=== PATIENT | male | born 1985 | race Caucasian/White ===

== ENCOUNTER 2017-10-12 17:29 | Inpatient (IN) | payer OTHER ==
[2017-10-12 18:03] VITALS: BMI 23.5
--- NOTE | 2017-10-12 20:16 | HP ---
COWS - Scale Resting Pulse: 2= SC 101-120 Sweatin= Chills/Flushing Restless Observation: 1= Difficult to Sit Still Pupil Size: 1= Pupils >than Normal Bone or Joint Aches: 1= Mild Discomfort Runny Nose/ Eye Tearin= None GI Upset > 30mins: 0= None Tremor Observation: 1= Tremor Purcell, Not Seen Yawning Observation: 2= >3x During Session Anxiety or Irritability: 2=Irritable/Anxious Goose Flesh Skin: 0=Smooth Skin COWS Score: 11 CIWA Score - CIWA Score Nausea/Vomitin-No Nausea/No Vomiting Muscle Tremors: 2 Anxiety: 3 Agitation: 3 Paroxysmal Sweats: 2 Orientation: 0-Oriented Tacttile Disturbances: 0-None Auditory Disturbances: 0-None Visual Disturbances: 0-None Headache: 0-None Present CIWA-Ar Total Score: 10 Admission ROS S - HPI Chief Complaint: " I am here to detox, I feel like I'm running out of time" Allergies/Adverse Reactions: Allergies Allergy/AdvReac Type Severity Reaction Status Date / Time No Known Drug Allergies Allergy Verified 10/12/17 19:13 fish derived AdvReac Verified 10/12/17 19:13 cheese, fish AdvReac Uncoded 10/12/17 19:13 History of Present Illness: 32 yo male with hx of alcohol IV heroin, alcohol, nicotine, and THC dependence is here seeking detox. PMHX: ulcerative Colitis, denies psychiatric hx. Denies suicidal / homicidal ideation. Last detox [facility] 2013. Reports no significant period sobriety. Exam Limitations: No Limitations - Ebola screening Have you traveled outside of the country in the last 21 days: Yes Have you been sick,other than usual withdrawal symptoms: No - Review of Systems Constitutional: Chills, Diaphoresis, Changes in sleep, Unintentional Wgt. Loss EENT: reports: No Symptoms Reported Respiratory: reports: No Symptoms reported Cardiac: reports: No Symptoms Reported GI: reports: Poor Fluid Intake : reports: No Symptoms Reported Musculoskeletal: reports: Back Pain (low back pain), Joint Pain Integumentary: reports: No Symptoms Reported Neuro: reports: No Symptoms reported Endocrine: reports: Increased Thirst Hematology: reports: Anemia (no hx blood transfusion) Psychiatric: reports: Orientated x3, Anxious Other Systems: Reviewed and Negative Patient History - Patient Medical History Hx Anemia: Yes (reports last month treated a month ago ) Hx Asthma: No Hx Chronic Obstructive Pulmonary Disease (COPD): No Hx Cancer: No Hx Cardiac Disorders: No Hx Congestive Heart Failure: No Hx Hypertension: No Hx Hypercholesterolemia: No Hx Pacemaker: No HX Cerebrovascular Accident: No Hx Seizures: No Hx Dementia: No Hx Diabetes: No Hx Gastrointestinal Disorders: Yes (Ulcerative Collitis ) Hx Liver Disease: No Hx Genitourinary Disorders: No Hx Sexually Transmitted Disorders: No Hx Renal Disease (ESRD): No Hx Thyroid Disease: No Hx Human Immunodeficiency Virus (HIV): No (doesn't recall last time tested ) Hx Hepatitis C: No Hx Depression: No Hx Suicide Attempt: No Hx Bipolar Disorder: No Hx Schizophrenia: No - Patient Surgical History Past Surgical History: Yes Hx Neurologic Surgery: No Hx Cataract Extraction: No Hx Cardiac Surgery: No Hx Lung Surgery: No Hx Breast Surgery: No Hx Breast Biopsy: No Hx Abdominal Surgery: No Hx Appendectomy: No Hx Cholecystectomy: No Hx Genitourinary Surgery: No Hx Section: No Hx Orthopedic Surgery: Yes (L wrist sx in 2000 bone graft from L hip.) Anesthesia Reaction: No - PPD History Previous Implant?: Yes Documented Results: Negative w/proof Date: 03/12/13 Results: 0mm PPD to be Administered?: Yes - Reproductive History Patient is a Female of Child Bearing Age (11 -55 yrs old): No - Smoking Cessation Smoking history: Current every day smoker Have you smoked in the past 12 months: Yes Aproximately how many cigarettes per day: 10 Cigars Per Day: 0 Hx Chewing Tobacco Use: No Initiated information on smoking cessation: Yes 'Breaking Loose' booklet given: 10/12/17 - Substance & Tx. History Hx Alcohol Use: Yes Hx Substance Use: Yes Substance Use Type: Alcohol, Heroin, Marijuana Hx Substance Use Treatment: Yes ([facility] 2013) - Substances Abused Alcohol Route: Oral Frequency: Daily Amount used: 1 BOTTLE OF VODKA Age of first use: 18 Date of Last Use: 10/09/17 Heroin Route: Injection Frequency: Daily Amount used: 10-15BAGS Age of first use: 34 Date of Last Use: 10/11/17 Family Disease History - Family Disease History Family History: Unable to Obtain Admission Physical Exam BHS - Vital Signs Vital Signs: Vital Signs - 24 hr 10/12/17 18:00 Temperature 97.0 F L Pulse Rate 110 H Respiratory 18 Rate Blood Pressure 119/69 - Physical General Appearance: Yes: Appropriately Dressed, Thin, Anxious HEENTM: Yes: EOMI, Hearing grossly Normal, Normal ENT Inspection, Normocephalic , Normal Voice, FARAZ, Pharynx Normal, Tm's normal Respiratory: Yes: Chest Non-Tender, Lungs Clear, Normal Breath Sounds, No Respiratory Distress, No Accessory Muscle Use Neck: Yes: No masses,lesions,Nodules, Trachea in good position Breast: Yes: Breast Exam Deferred Cardiology: Yes: Regular Rhythm, Regular Rate Abdominal: Yes: Normal Bowel Sounds, Non Tender, Flat, Soft Genitourinary: Yes: Within Normal Limits Back: Yes: Normal Inspection Musculoskeletal: Yes: full range of Motion, Gait Steady, Pelvis Stable, Back pain Extremities: Yes: Normal Capillary Refill, Normal Inspection, Normal Range of Motion, Non-Tender Neurological: Yes: womens volleyball coach II-XII NML intact, Fully Oriented, Motor Strength 5/5, Depressed Affect Integumentary: Yes: Normal Color, Moist, Track Ramos (bilateral hands in different heating stages, no signs of infection. Abrasion on the bridge of nose , no infection.) Lymphatic: Yes: Within Normal Limits - Diagnostic (1) Alcohol dependence with withdrawal Current Visit: Yes Status: Acute Qualifiers: Complication of substance-induced condition: uncomplicated Qualified Code(s ): F10.230 - Alcohol dependence with withdrawal, uncomplicated (2) Opioid dependence with withdrawal Current Visit: Yes Status: Acute (3) Marijuana dependence Current Visit: Yes Status: Acute (4) Ulcerative colitis Current Visit: Yes Status: Chronic Qualifiers: Ulcerative colitis location: unspecified ulcerative colitis location (5) Anemia Current Visit: Yes Status: Acute Qualifiers: Anemia type: iron deficiency (6) Nicotine dependence Current Visit: Yes Status: Active (7) IVDU (intravenous drug user) Current Visit: Yes Status: Acute Cleared for Admission S - Detox or Rehab [facility] Level of Care: Medically Supervised Detox Regimen/Protocol: Methadone/Librium S Breath Alcohol Content Breath Alcohol Content: 0 Urine Drug Screen - Results Drug Screen Negative: No Urine Drug Screen Results: THC-Marijuana, OPI-Opiates, OXY-Oxycodone
[2017-10-12] MEDS ORDERED: MENTHOL/PHENOL 1 EACH UD MM PRN (20:23)
[2017-10-12] MEDS ORDERED: MAGNESIUM CITRATE 300 ML BOTTLE PO PRN (20:23)
[2017-10-12] MEDS ORDERED: LOPERAMIDE HCL 2 MG CAPSULE PO PRN (20:23)
[2017-10-12] MEDS ORDERED: MAGNESIUM HYDROX 2400MG/30ML ORAL SUSPENSION 30 ML CUP PO PRN (20:23)
[2017-10-12] MEDS ORDERED: guaiFENesin/D-METHORPHAN HB 10 ML UNIT-DOSE CUPS PO PRN (20:23)
[2017-10-12] MEDS ORDERED: chlordiazePOXIDE HCL 25 MG CAPSULE PO PRN (20:23)
[2017-10-12] MEDS ORDERED: P-EPHED 60MG/TRIPROLIDI 2.5MG TABLET PO PRN (20:23)
[2017-10-12] MEDS ORDERED: ACETAMINOPHEN 325 MG TABLET (FP) PO PRN (20:23)
[2017-10-12] MEDS ORDERED: MAG HYDROX/AL HYDROX/SIMETH 30 ML UNIT-DOSE CUP PO PRN (20:23)
[2017-10-12] MEDS ORDERED: NICOTINE POLACRILEX 2 MG GUM BUC PRN (20:29)
[2017-10-12] MEDS ORDERED: hydrOXYzine PAMOATE 50 MG CAPSULE (FP) PO PRN (20:38)
[2017-10-12] MEDS ORDERED: IBUPROFEN 400 MG TABLET (FP) PO PRN (20:39)
[2017-10-12] MEDS ORDERED: METHADONE HCL 10 MG TABLET (FOR DETOX USE ONLY) PO ONE ×2 (20:45→23:00)
[2017-10-12] MEDS ORDERED: chlordiazePOXIDE HCL 25 MG CAPSULE PO ONE (20:45)
[2017-10-12] MEDS ORDERED: MELATONIN 5 MG TABLETS PO PRN (22:00)
[2017-10-12] MEDS: THIAMINE HCL 100 MG TABLET (FP) PO SCH (22:15)
[2017-10-12] MEDS: chlordiazePOXIDE HCL 25 MG CAPSULE PO SCH (22:48)
[2017-10-13] MEDS: chlordiazePOXIDE HCL 25 MG CAPSULE PO SCH ×4 (06:08→22:36)
[2017-10-13] MEDS ORDERED: METHADONE HCL 10 MG TABLET (FOR DETOX USE ONLY) PO SCH (10:00)
[2017-10-13 10:40] LABS: URINE APPEARANCE CLOUDY; URINE BILIRUBIN NEGATIVE (<2.0 mg/dL); URINE GLUCOSE (UA) NEGATIVE (NEGATIVE); URINE KETONE NEGATIVE (NEGATIVE); URINE LEUK ESTERASE NEGATIVE (NEGATIVE); URINE NITRITE NEGATIVE (NEGATIVE); URINE PROTEIN NEGATIVE (NEGATIVE); URINE UROBILINOGEN NEGATIVE mg/dL (0.2-1.0)
[2017-10-13] MEDS: NICOTINE 14 MG/24 HOURS TOPICAL PATCH TD SCH (10:41)
[2017-10-13] MEDS: PRENATAL VITAMINS W/ FOLIC ACID TABLET (FP) PO SCH (10:41)
[2017-10-13] MEDS: PATIENT'S OWN MEDICATION (NON-FORMULARY) (Ferrous Sulfate [Ferrous Sulfate] 325 MG) PO SCH ×4 (10:42→22:35)
[2017-10-13] MEDS: PATIENT'S OWN MEDICATION (NON-FORMULARY) (Mesalamine [Lialda] 1.2 GM) PO SCH ×3 (10:42→22:35)
[2017-10-13 11:04] LABS: HEMATOCRIT 26.8 % (35.4-49); HEMOGLOBIN 7.7 GM/dL (11.7-16.9); MCH 20.1 pg (25.7-33.7); MCHC 28.9 g/dl (32.0-35.9); MEAN CELL VOLUME 69.6 fl (80-96); MEAN PLT VOLUME 7.3 fl (7.5-11.1); RBC 3.85 M/mm3 (4.00-5.60); RDW 22.4 % (11.9-15.9); WHITE BLOOD COUNT 11.8 K/mm3 (4.0-10.0)
[2017-10-13 11:06] LABS: URINE COLOR DK YELLOW
[2017-10-13 11:45] LABS: PLATELET COUNT 1132 K/MM3 (134-434)
--- NOTE | 2017-10-13 12:19 | PN ---
[facility] CIWA - CIWA Score Nausea/Vomitin-No Nausea/No Vomiting Muscle Tremors: 3 Anxiety: 4-Mod. Anxious/Guarded Agitation: 3 Paroxysmal Sweats: 2 Orientation: 0-Oriented Tacttile Disturbances: 0-None Auditory Disturbances: 0-None Visual Disturbances: 0-None Headache: 0-None Present CIWA-Ar Total Score: 12 S COWS - Scale Resting Pulse: 1= SD 81-100 Sweatin= Chills/Flushing Restless Observation: 3= Extraneous Movement Pupil Size: 2= Moderately Dilated Bone or Joint Aches: 1= Mild Discomfort Runny Nose/ Eye Tearin= None GI Upset > 30mins: 0= None Tremor Observation of Outstretched Hands: 2= Slight Tremor Visible Yawning Observation: 1= 1-2x During Session Anxiety or Irritability: 2=Irritable/Anxious Goose Flesh Skin: 0=Smooth Skin COWS Score: 13 [facility] Progress Note (SOAP) Subjective: ANXIETY,CHILLS,SLIGHT TREMORS,IRRITABILITY, FATIGUE. Objective: 10/13/17 12:21 Laboratory Tests 10/12/17 10/13/17 10/13/17 08:00 07:30 07:30 WBC 11.8 H D RBC 3.85 L Hgb 7.7 L D Hct 26.8 L D MCV 69.6 L MCH 20.1 L MCHC 28.9 L RDW 22.4 H D Plt Count 1132 H D MPV 7.3 L Sodium Potassium Chloride Carbon Dioxide Anion Gap BUN Creatinine Creat Clearance w eGFR Random Glucose Calcium Total Bilirubin AST ALT Alkaline Phosphatase Total Protein Albumin Urine Color Dk yellow Urine Appearance Cloudy Urine pH 5.0 Ur Specific [place] 1.014 Urine Protein Negative Urine Glucose (UA) Negative Urine Ketones Negative Urine Blood Negative Urine Nitrite Negative Urine Bilirubin Negative Urine Urobilinogen Negative Ur Leukocyte Esterase Negative RPR Titer HIV 1&2 Antibody Screen Negative HIV P24 Antigen Negative 10/13/17 10/13/17 07:30 07:30 WBC RBC Hgb Hct MCV MCH MCHC RDW Plt Count MPV Sodium Cancelled Potassium Cancelled Chloride Cancelled Carbon Dioxide Cancelled Anion Gap Cancelled BUN Cancelled Creatinine Cancelled Creat Clearance w eGFR Cancelled Random Glucose Cancelled Calcium Cancelled Total Bilirubin Cancelled AST Cancelled ALT Cancelled Alkaline Phosphatase Cancelled Total Protein Cancelled Albumin Cancelled Urine Color Urine Appearance Urine pH Ur Specific [place] Urine Protein Urine Glucose (UA) Urine Ketones Urine Blood Urine Nitrite Urine Bilirubin Urine Urobilinogen Ur Leukocyte Esterase RPR Titer Nonreactive HIV 1&2 Antibody Screen HIV P24 Antigen Vital Signs 10/13/17 10/13/17 06:25 09:31 Temperature 99.2 F 98.3 F Pulse Rate 82 83 Respiratory 16 20 Rate Blood Pressure 117/66 120/69 DECREASED HGB/HCT = 7.7/26.8 CMP PENDING Assessment: 10/13/17 12:22 WITHDRAWAL SX HX ANEMIA Plan: CONTINUE DETOX CONTINUE FEOSOL DIRECTED.
[2017-10-13 13:00] LABS: ALBUMIN 2.2 g/dl (3.4-5.0); ALK PHOS 78 U/L (45-117); ANION GAP 3 (8-16); BILIRUBIN,TOTAL 0.2 mg/dL (0.2-1.0); BLOOD UREA NITROGEN 7 mg/dL (7-18); CALCIUM 8.2 mg/dL (8.5-10.1); CHLORIDE 108 mmol/L (98-107); CO2 29 mmol/L (21-32); CREATININE 0.8 mg/dL (0.7-1.3); GLUCOSE,RANDOM 85 mg/dL (74-106); POTASSIUM 5.3 mmol/L (3.5-5.1); SGOT/AST 15 U/L (15-37); SGPT/ALT 15 U/L (12-78); SODIUM 140 mmol/L (136-145); TOT PROT 6.7 g/dl (6.4-8.2)
--- NOTE | 2017-10-13 16:23 | EKG ---
Test Reason : Blood Pressure : / mmHG Vent. Rate : 090 BPM Atrial Rate : 090 BPM P-R Int : 134 ms QRS Dur : 084 ms QT Int : 352 ms P-R-T Axes : 052 063 049 degrees QTc Int : 430 ms NORMAL SINUS RHYTHM NORMAL ECG NO PREVIOUS ECGS AVAILABLE Confirmed by MD Dru, Felipe ([id number]) on 10/13/2017 4:22:47 PM Referred By: NAIN Confirmed By:Felipe Gonsales MD
--- NOTE | 2017-10-13 20:58 | CONSULT ---
[facility] Psychiatric Consult - Data Date of interview: 10/13/17 Admission source: [facility] Identifying data: Approached this patient on THREE occasions for psychiatric interview.Mr Painter refused." I cannot talk.I need my rest.Please leave and close the door ".Nursing staff is made aware.
[2017-10-13] MEDS: THIAMINE HCL 100 MG TABLET (FP) PO SCH (22:35)
[2017-10-14] MEDS: chlordiazePOXIDE HCL 25 MG CAPSULE PO SCH ×2 (06:00→10:14)
[2017-10-14] MEDS: PATIENT'S OWN MEDICATION (NON-FORMULARY) (Ferrous Sulfate [Ferrous Sulfate] 325 MG) PO SCH ×2 (07:01→14:25)
[2017-10-14 09:24] VITALS: BP 125/85; PULSE 108; TEMP 99.1
[2017-10-14] MEDS ORDERED: METHADONE HCL 5 MG TABLET (FOR DETOX USE ONLY) PO SCH (10:00)
[2017-10-14] MEDS: PATIENT'S OWN MEDICATION (NON-FORMULARY) (Mesalamine [Lialda] 1.2 GM) PO SCH (10:14)
[2017-10-14] MEDS: NICOTINE 14 MG/24 HOURS TOPICAL PATCH TD SCH (10:14)
[2017-10-14] MEDS: PRENATAL VITAMINS W/ FOLIC ACID TABLET (FP) PO SCH (10:14)
--- NOTE | 2017-10-14 10:15 | PN ---
S Progress Note Note: C/O PAIN TO LEFT DELTOID. PT REPORTED TO THE STAFF THIS MORNING THAT HE HAS PAIN TO LEFT SHOULDER BECAUSE HE INJECTED DRUGS ON THAT ARM FEW DAYS AGO BEFORE ADMISSION. PT IS A 32 Y/O MALE WHO WAS ADMITTED ON 10/12/17 FOR HEROIN AND ALCOHOL WITHDRAWAL SX. PAST MEDICAL HX OF ULCERATIVE COLITIS. DENIED PSYCH HX. PT IS CURRENTLY ON METHADONE/LIBRIUM REGIMEN PROTOCOL TAPER. LEFT ARM EXAM:REDNESS WITH SEVERE SWELLING OF DELTOID AREA. MODERATE SWELLING WITHOUT REDNESS EXTENDING DISTALLY TO ELBOW AND WRIST REGIONS. WARM AND PAINFUL TO TOUCH. Vital Signs 10/14/17 10/14/17 10/14/17 03:30 06:48 09:22 Temperature 100 F H 99.1 F Pulse Rate 98 H 108 H Respiratory 18 18 20 Rate Blood Pressure 112/66 125/85 LOW GRADE TEMP. IMPRESSION: CELLULITIS AND ABSCESS OF LEFT ARM R/T IVD INJECTION. PLAN:TRANSFER PT TO [facility] FOR FURTHER EVALUATION AND TREATMENT. SPOKE WITH AT THE [facility] ER WHO HAS ACCEPTED THIS PATIENT. PT MAY RETURN TO [facility] TO COMPLETE DETOX IF MEDICALLY CLEARED.
--- NOTE | 2017-10-14 10:15 | PN ---
S CIWA - CIWA Score Nausea/Vomitin-No Nausea/No Vomiting Muscle Tremors: 4-Moderate,w/Arms Extend Anxiety: 4-Mod. Anxious/Guarded Paroxysmal Sweats: 1-Minimal Palms Moist Orientation: 0-Oriented Tacttile Disturbances: 3-Moderate Itch/Numb/Burn Auditory Disturbances: 0-None Visual Disturbances: 0-None Headache: 0-None Present S COWS - Scale Resting Pulse: 2= PA 101-120 Sweatin= Chills/Flushing Restless Observation: 3= Extraneous Movement Pupil Size: 0= Normal to Room Light Bone or Joint Aches: 4=Acute Joint/Muscle Pain Runny Nose/ Eye Tearin= Nasal Congestion GI Upset > 30mins: 0= None Tremor Observation of Outstretched Hands: 1= Tremor [place]demona, Not Seen Yawning Observation: 0= None Anxiety or Irritability: 2=Irritable/Anxious Goose Flesh Skin: 0=Smooth Skin COWS Score: 14 S Progress Note (SOAP) Subjective: ANXIETY, CHILLS/SWEATS, IRRITABILITY, INTERMITTENT SLEEP,FATIGUE. PAIN TO LEFT ARM. Objective: 10/14/17 10:14 Vital Signs 10/14/17 10/14/17 10/14/17 03:30 06:48 09:22 Temperature 100 F H 99.1 F Pulse Rate 98 H 108 H Respiratory 18 18 20 Rate Blood Pressure 112/66 125/85 Laboratory Tests 10/12/17 10/12/17 10/13/17 07:31 08:00 07:30 WBC RBC Hgb Hct MCV MCH MCHC RDW Plt Count MPV Sodium 140 Potassium 5.3 H Chloride 108 H Carbon Dioxide 29 D Anion Gap 3 L BUN 7 D Creatinine 0.8 Creat Clearance w eGFR > 60 Random Glucose 85 Calcium 8.2 L Total Bilirubin 0.2 D AST 15 D ALT 15 D Alkaline Phosphatase 78 Total Protein 6.7 Albumin 2.2 L D Urine Color Dk yellow Urine Appearance Cloudy Urine pH 5.0 Ur Specific [place] 1.014 Urine Protein Negative Urine Glucose (UA) Negative Urine Ketones Negative Urine Blood Negative Urine Nitrite Negative Urine Bilirubin Negative Urine Urobilinogen Negative Ur Leukocyte Esterase Negative RPR Titer HIV 1&2 Antibody Screen Negative HIV P24 Antigen Negative 10/13/17 10/13/17 10/13/17 07:30 07:30 07:30 WBC 11.8 H D RBC 3.85 L Hgb 7.7 L D Hct 26.8 L D MCV 69.6 L MCH 20.1 L MCHC 28.9 L RDW 22.4 H D Plt Count 1132 H D MPV 7.3 L Sodium Cancelled Potassium Cancelled Chloride Cancelled Carbon Dioxide Cancelled Anion Gap Cancelled BUN Cancelled Creatinine Cancelled Creat Clearance w eGFR Cancelled Random Glucose Cancelled Calcium Cancelled Total Bilirubin Cancelled AST Cancelled ALT Cancelled Alkaline Phosphatase Cancelled Total Protein Cancelled Albumin Cancelled Urine Color Urine Appearance Urine pH Ur Specific [place] Urine Protein Urine Glucose (UA) Urine Ketones Urine Blood Urine Nitrite Urine Bilirubin Urine Urobilinogen Ur Leukocyte Esterase RPR Titer Nonreactive HIV 1&2 Antibody Screen HIV P24 Antigen WILL HOLD OFF ON REPEAT LAB TODAY SINCE PT IS TRANSFERED TO [facility] ER WHERE LABS WILL LIKELY BE REPEATED. Assessment: 10/14/17 10:14 WITHDRAWAL SX LEFT ARM CELLULITIS AND ABSCESS R/T IVD INJECTION Plan: CONTINUE DETOX MAY TRANSFER TO ER FOR EVALUATION OF LEFT ARM IVD INJECTION SITE.
--- NOTE | 2017-10-14 13:39 | HP ---
Admitting History and Physical - Admission Chief Complaint: left shoulder pain History of Present Illness: 32 yo RHD male PMH polysubstance abuse, alcohol IV heroin, alcohol, nicotine, and THC dependence, and colitis presented with a pain an swelling and decreased ROM Left shoulder. Recently admitted to [facility]. Noted pain and swelling left shoudler (at the site of heroin injection) and distal left arm. He rates pain 5/10 at its worse. Denies fever and chills. We were asked to assess. History Source: Patient, Medical Record Limitations to Obtaining History: No Limitations - Smoking History Smoking history: Current every day smoker Have you smoked in the past 12 months: Yes Aproximately how many cigarettes per day: 10 - Alcohol/Substance Use Hx Alcohol Use: Yes History of Substance Use: reports: Heroin, Marijuana - Social History ADL: Independent History of Recent Travel: No Home Medications - Allergies Allergies/Adverse Reactions: Allergies Allergy/AdvReac Type Severity Reaction Status Date / Time No Known Drug Allergies Allergy Verified 10/12/17 19:13 fish derived AdvReac Verified 10/12/17 19:13 cheese, fish AdvReac Uncoded 10/12/17 19:13 - Home Medications Home Medications: Ambulatory Orders Ferrous Sulfate 325 mg PO TID 10/12/17 Mesalamine [Lialda] 1.2 gm PO BID 10/12/17 Review of Systems - Review of Systems Constitutional: denies: Chills, Fever Eyes: denies: Blind Spots, Recent Change in Vision HENT: denies: Difficult Swallowing, Throat Pain Neck: denies: Decreased ROM, Tenderness Cardiovascular: denies: Chest Pain, Palpitations Respiratory: denies: Cough, SOB Gastrointestinal: denies: Abdominal Pain, Constipation, Diarrhea Genitourinary: denies: Burning, Discharge, Dysuria Breasts: reports: No Symptoms Reported, Pain Musculoskeletal: reports: Joint Pain, Joint Swelling, Muscle Weakness Integumentary: reports: Erythema, Lump Neurological: denies: Change in LOC, Change in Speech Endocrine: denies: Unexplained Weight Gain, Unexplained Weight Loss Hematology/Lymphatic: denies: Easily Bruised, Excessive Bleeding Psychiatric: denies: Altered Sleep Pattern, Anxiety, Depression Physical Examination Vital Signs: Vital Signs Temperature 99.1 F 10/14/17 09:22 Pulse Rate 108 H 10/14/17 09:22 Respiratory Rate 20 10/14/17 09:22 Blood Pressure 125/85 10/14/17 09:22 O2 Sat by Pulse Oximetry (%) Constitutional: Yes: Well Nourished, No Distress, Calm Eyes: Yes: Conjunctiva Clear, EOM Intact HENT: Yes: Atraumatic, Normocephalic Neck: Yes: Supple, Trachea Midline Cardiovascular: Yes: Regular Rate and Rhythm, S1, S2 Respiratory: Yes: Regular, CTA Bilaterally Gastrointestinal: Yes: Normal Bowel Sounds, Soft. No: Tenderness ...Rectal Exam: Yes: Deferred Renal/: No: CVA Tenderness - Left, CVA Tenderness - Right Musculoskeletal: Yes: Joint Stiffness, Joint Swelling (left shoulder), Muscle Weakness Extremities: Yes: Erythema (left shoulder overlying deltoid [id number] and fluctuant, injection punctunm). No: Cool, Cyanosis Edema: Yes Edema: LUE: 2+ Peripheral Pulses WNL: Yes Peripheral Pulses: Left Radial: 2+, Right Radial: 2+, Left Doralis Pedis: 2+, Right Dorsalis Pedis: 2+ Neurological: Yes: Alert, Oriented Psychiatric: Yes: Alert, Oriented Labs: CBC, BMP 10/13/17 07:30 10/13/17 07:30 Imaging - Results X-ray: Pending Problem List - Problems (1) Abscess of left shoulder Assessment/Plan: 32 yo male MMP nicluding IVDA with left shoulder abscess at the site of injection NPO and IVF hydration IV antibiotics Discussed with patient risks, benefits and alternatives of Incision and drainage of left shoudler abscess, including but not limited to disfiguring scar , bleeding, infection, injury to adjacent structures, recurrent abscess, lost of function need for further procedures, ; alternatives include antibiotics , delayed or no surgery - risks of this include failure of nonoperative therapy , sepsis, recurrence, . Patient desires to proceed with operation - will take to OR for above. Informed consent signed for same. Code(s): L02.414 - CUTANEOUS ABSCESS OF LEFT UPPER LIMB (2) Cellulitis and abscess of hand Code(s): L03.119 - CELLULITIS OF UNSPECIFIED PART OF LIMB; L02.519 - CUTANEOUS ABSCESS OF UNSPECIFIED HAND (3) IVDU (intravenous drug user) Code(s): F19.90 - OTHER PSYCHOACTIVE SUBSTANCE USE, UNSPECIFIED, UNCOMPLICATED (4) Marijuana dependence Code(s): F12.20 - CANNABIS DEPENDENCE, UNCOMPLICATED
[2017-10-14] MEDS ORDERED: ONDANSETRON 4 MG/2 ML VIAL IVPUSH PRN (13:44)
[2017-10-14] MEDS ORDERED: KETOROLAC TROMETHAMINE 15 MG/ML VIAL IVPUSH PRN (13:44)
[2017-10-14] MEDS ORDERED: LACTATED RINGERS SOLUTION 1,000 ML IV SCH (13:45)
[2017-10-14] MEDS ORDERED: PANTOPRAZOLE 40 MG TABLET (FP) PO SCH (14:00)
[2017-10-14] MEDS ORDERED: chlordiazePOXIDE 5 MG CAPSULE PO SCH (23:00)
[2017-10-15] MEDS ORDERED: chlordiazePOXIDE HCL 10 MG CAPSULE PO SCH (23:00)
[2017-10-16] MEDS ORDERED: METHADONE HCL 10 MG TABLET (FOR DETOX USE ONLY) PO SCH (10:00)
[2017-10-17] MEDS ORDERED: METHADONE HCL 5 MG TABLET (FOR DETOX USE ONLY) PO SCH (06:00)
== END 2017-10-14 13:41 | disposition short-term general hospital (02) | DRG 773 ==
LOC: YASAS 17:29 → Y3N 19:48
PROVIDERS: ADMIT Internal Medicine; ATTEND Internal Medicine
PROC: HZ2ZZZZ Detoxification Services for Substance Abuse Treatment (ICD-10-PCS; principal; 2017-10-12)
DX: F11.23 Opioid dependence with withdrawal (principal); F10.230 Alcohol dependence with withdrawal, uncomplicated; F17.213 Nicotine dependence, cigarettes, with withdrawal; D50.9 Iron deficiency anemia, unspecified; K51.90 Ulcerative colitis, unspecified, without complications; L03.114 Cellulitis of left upper limb; L02.414 Cutaneous abscess of left upper limb; Z91.013 Allergy to seafood; Z91.011 Allergy to milk products
CPT/HCPCS: 36415; 80053; 81003; 85027; 86593; 87389; 93005; 93010

== ENCOUNTER 2017-10-14 11:16 | Inpatient (IN) | payer OTHER ==
[2017-10-14] MEDS ORDERED: SODIUM CHLORIDE 1,000 ML IV STA (11:39)
--- NOTE | 2017-10-14 11:39 | PDOC ---
History of Present Illness - General History Source: Patient Exam Limitations: No Limitations <Jerica Lowe - Last Filed: 10/14/17 13:36> - General History Source: Patient Exam Limitations: No Limitations - History of Present Illness Initial Comments: 10/14/17 12:12 The patient is a 32 year old male, with a significant past medical history of IV heroin abuse anemia, and ulcerative colitis, who presents to the emergency department with left shoulder/arm pain and increased erythema for approximately 3 days. The patient reports he first noted erythema around his left shoulder 3 days ago. Since then, patient reports associated swelling and pain to the point where he is unable to lift his left arm. He reports the erythema has spread down his left arm. He reports a subjective fever, but denies any chills, cough, headache, or dizziness. He denies any nausea, vomiting, diaphoresis, or palpitations. He denies any chest pain, shortness of breath, diaphoresis, or palpitations. He reports he last injected heroin 3 days ago. He denies any recent travel or sick contacts. Allergies: NKDA Past Surgical History: L wrist sx in 2000 bone graft from L hip. Social History: IV Heroin use. Marijuana use. ETOH abuse. Non smoker. <Fernando Landa - Last Filed: 10/14/17 17:57> - General Chief Complaint: Wound Stated Complaint: ABSCESS Time Seen by Provider: 10/14/17 11:38 Past History - Past Medical History Anemia: Yes (reports last month treated a month ago ) Asthma: No Cancer: No Cardiac Disorders: No CVA: No COPD: No CHF: No Dementia: No Diabetes: No GI Disorders: Yes (Ulcerative Collitis ) Disorders: No HTN: No Hypercholesterolemia: No Kidney Stones: No Liver Disease: No Seizures: No Thyroid Disease: No - Surgical History Abdominal Surgery: No Appendectomy: No Cardiac Surgery: No Cholecystectomy: No Lung Surgery: No Neurologic Surgery: No Orthopedic Surgery: Yes (L wrist sx in 2000 bone graft from L hip.) - Reproductive History Testicular Surgery: No - Immunization History Immunization Up to Date: Yes - Suicide/Smoking/Psychosocial Hx Smoking History: Current some day smoker Have you smoked in the past 12 months: Yes Number of Cigarettes Smoked Daily: 10 Cigars Per Day: 0 Information on smoking cessation initiated: No 'Breaking Loose' booklet given: 10/12/17 Hx Alcohol Use: Yes Drug/Substance Use Hx: Yes ([facility]) Substance Use Type: Alcohol, Heroin, Marijuana Hx Substance Use Treatment: Yes ([facility] 2013) <Jerica Lowe - Last Filed: 10/14/17 13:36> <Fernando Landa - Last Filed: 10/14/17 17:57> - Past Medical History Allergies/Adverse Reactions: Allergies Allergy/AdvReac Type Severity Reaction Status Date / Time No Known Drug Allergies Allergy Verified 10/12/17 19:13 fish derived AdvReac Verified 10/12/17 19:13 cheese, fish AdvReac Uncoded 10/12/17 19:13 Home Medications: Ambulatory Orders Ferrous Sulfate 325 mg PO TID 10/12/17 Mesalamine [Lialda] 1.2 gm PO BID 10/12/17 Chlordiazepoxide [Librium -] 50 mg PO Q6HPO 10/14/17 Methadone [Dolophine -] 20 mg PO DAILY 10/14/17 Review of Systems - Review of Systems Able to Perform ROS?: Yes Comments:: 10/14/17 12:12 GENERAL/CONSTITUTIONAL: No fever or chills. No weakness. HEAD, EYES, EARS, NOSE AND THROAT: No change in vision. No ear pain or discharge. No sore throat. CARDIOVASCULAR: No chest pain or shortness of breath. RESPIRATORY: No cough, wheezing, or hemoptysis. GASTROINTESTINAL: No nausea, vomiting, diarrhea or constipation. GENITOURINARY: No dysuria, frequency, or change in urination. MUSCULOSKELETAL: +Left shoulder and arm pain/erythema/swelling. No neck or back pain. SKIN: +Left arm erythema NEUROLOGIC: No headache, vertigo, loss of consciousness, or change in strength/ sensation. ENDOCRINE: No increased thirst. No abnormal weight change. HEMATOLOGIC/LYMPHATIC: No anemia, easy bleeding, or history of blood clots. ALLERGIC/IMMUNOLOGIC: No hives or skin allergy. <Fernando Landa - Last Filed: 10/14/17 17:57> *Physical Exam - Vital Signs Last Vital Signs Temp Pulse Resp BP Pulse Ox 99.3 F 123 H 20 108/74 99 10/14/17 11:18 10/14/17 11:18 10/14/17 11:18 10/14/17 11:18 10/14/17 11:18 <Jerica Lowe - Last Filed: 10/14/17 13:36> - Vital Signs Last Vital Signs Temp Pulse Resp BP Pulse Ox 99.3 F 123 H 20 108/74 99 10/14/17 11:18 10/14/17 11:18 10/14/17 11:18 10/14/17 11:18 10/14/17 11:18 - Physical Exam Comments: 10/14/17 17:56 GENERAL: The patient is in no acute distress. Awake, alert, and orientedx3. HEAD: Normal with no signs of trauma. EYES: PERRLA, EOMI, sclera anicteric, conjunctiva clear. ENT: Ears normal, nares patent, oropharynx clear without exudates. Moist mucous membranes. NECK: Normal range of motion, supple without lymphadenopathy, JVD, or masses. LUNGS: Breath sounds equal, clear to auscultation bilaterally. No wheezes, and no crackles. HEART: Regular rate and rhythm, normal S1 and S2 without murmur, rub or gallop. ABDOMEN: Soft, nontender, normoactive bowel sounds. No guarding, no rebound. No masses palpable. EXTREMITIES: Left deltoid erythema, warmth, tenderness, and limited ROM due to pain. Normal range of motion and no edema at the remainder of the extremities. No clubbing or cyanosis. No erythema, or tenderness. NEUROLOGICAL: Cranial nerves II through XII grossly intact. Normal speech. No focal neurological deficits. MUSCULOSKELETAL: Back non-tender to palpation, no CVA tenderness SKIN: Warm, Dry, normal turgor, no rashes or lesions noted. <Fernando Landa - Last Filed: 10/14/17 17:57> ED Treatment Course - LABORATORY CBC & Chemistry Diagram: 10/14/17 12:28 10/14/17 12:28 <Jerica Lowe - Last Filed: 10/14/17 13:36> - LABORATORY CBC & Chemistry Diagram: 10/14/17 12:28 10/14/17 12:28 <Fernando Landa - Last Filed: 10/14/17 17:57> Medical Decision Making - Medical Decision Making 10/14/17 13:32 Mr Painter is a 32 yo RHD M who presents to the ER with a complaint of Left deltoid erythema and pain Pt last injected heroin in this area a few days ago No fevers noted No chills Pt noted severe pain and limitation in range of motion DD: Cellulitis, Abscess, Will do: Labs, blood cultures, Abx, IVF Laboratory Tests 10/14/17 10/14/17 12:28 12:28 WBC 14.8 H Hgb 7.9 L Hct 26.6 L Plt Count 1134 H Sodium 139 Potassium 5.2 H Chloride 105 Carbon Dioxide 28 Anion Gap 6 L BUN 5 L D Creatinine 0.8 Random Glucose 89 10/14/17 13:36 EKG: NSR, rate of 93 vpm, [place] nml, no ST elevations or depressions, t waves upright Pt seen by Dr. Reed Call placed to Dr. Giron Pt will be admitted Dr Giron requests ID consult with Dr isaac Clinical Impression: Left shoulder cellulitis, initial presentation <Jerica Lowe - Last Filed: 10/14/17 13:36> *DC/Admit/Observation/Transfer - Discharge Dispostion Decision to Admit order: Yes <Jerica Lowe - Last Filed: 10/14/17 13:36> - Attestations Scribe Attestion: 10/14/17 12:13 Documentation prepared by Fernando Landa, acting as medical donation professional for Jerica Lowe MD. <Fernando Landa - Last Filed: 10/14/17 17:57> Diagnosis at time of Disposition: Cellulitis and abscess of hand - Discharge Dispostion Condition at time of disposition: Stable
[2017-10-14] MEDS ORDERED: ACETAMINOPHEN 325 MG TABLET (FP) PO ONE (12:02)
[2017-10-14] MEDS ORDERED: VANCOMYCIN 1,000 MG in DEXTROSE 5%-WATER - 250 ML IVPB ONE ×3 (12:06→18:00)
[2017-10-14] MEDS ORDERED: ACETAMINOPHEN 325 MG TABLET (FP) ONE (12:16)
[2017-10-14] MEDS ORDERED: VANCOMYCIN 1 GRAM (PRE-DOCKED) 1,000 MG/250 ML BAG IVPB ONE (12:17)
[2017-10-14] MEDS ORDERED: ACETAMINOPHEN 325 MG TABLET (FP) PO PRN (12:42)
[2017-10-14] MEDS ORDERED: KETOROLAC TROMETHAMINE 15 MG/ML VIAL IVPUSH PRN (12:42)
[2017-10-14] MEDS ORDERED: ONDANSETRON 4 MG/2 ML VIAL IVPUSH PRN ×2 (12:42→19:06)
[2017-10-14] MEDS ORDERED: LACTATED RINGERS SOLUTION 1,000 ML IV SCH ×2 (12:45→19:15)
[2017-10-14] MEDS ORDERED: PIPERACILLIN/TAZOB 3.375 GM 3.375 GM in DEXTROSE 5%-WATER - 50 ML IVPB ONE (12:47)
--- NOTE | 2017-10-14 12:48 | HP ---
Admitting History and Physical - Admission Chief Complaint: left shoulder abscess History Source: Patient, Medical Record Limitations to Obtaining History: No Limitations - Smoking History Smoking history: Current some day smoker Have you smoked in the past 12 months: Yes Aproximately how many cigarettes per day: 10 - Alcohol/Substance Use Hx Alcohol Use: Yes Home Medications - Allergies Allergies/Adverse Reactions: Allergies Allergy/AdvReac Type Severity Reaction Status Date / Time No Known Drug Allergies Allergy Verified 10/12/17 19:13 fish derived AdvReac Verified 10/12/17 19:13 cheese, fish AdvReac Uncoded 10/12/17 19:13 - Home Medications Home Medications: Ambulatory Orders Ferrous Sulfate 325 mg PO TID 10/12/17 Mesalamine [Lialda] 1.2 gm PO BID 10/12/17 Physical Examination Vital Signs: Vital Signs Temperature 99.3 F 10/14/17 11:18 Pulse Rate 123 H 10/14/17 11:18 Respiratory Rate 20 10/14/17 11:18 Blood Pressure 108/74 10/14/17 11:18 O2 Sat by Pulse Oximetry (%) 99 10/14/17 11:18
[2017-10-14 12:56] LABS: BASO % 0.7 % (0-2.0); EOS % 1.4 % (0-4.5); HEMATOCRIT 26.6 % (35.4-49); HEMOGLOBIN 7.9 GM/dL (11.7-16.9); LYMPH % 41.3 % (8-40); MCH 20.1 pg (25.7-33.7); MCHC 29.6 g/dl (32.0-35.9); MEAN PLT VOLUME 6.9 fl (7.5-11.1); MONO % 7.9 % (3.8-10.2); NEUT % 48.7 % (42.8-82.8); RBC 3.91 M/mm3 (4.00-5.60); RDW 22.4 % (11.9-15.9); WHITE BLOOD COUNT 14.8 K/mm3 (4.0-10.0)
[2017-10-14 13:10] LABS: ALBUMIN 2.3 g/dl (3.4-5.0); ALK PHOS 76 U/L (45-117); ANION GAP 6 (8-16); BILIRUBIN,TOTAL 0.3 mg/dL (0.2-1.0); BLOOD UREA NITROGEN 5 mg/dL (7-18); CALCIUM 8.4 mg/dL (8.5-10.1); CHLORIDE 105 mmol/L (98-107); CO2 28 mmol/L (21-32); CREATININE 0.8 mg/dL (0.7-1.3); GLUCOSE,RANDOM 89 mg/dL (74-106); POTASSIUM 5.2 mmol/L (3.5-5.1); SGOT/AST 13 U/L (15-37); SGPT/ALT 13 U/L (12-78); SODIUM 139 mmol/L (136-145); TOT PROT 7.3 g/dl (6.4-8.2)
[2017-10-14 13:11] LABS: PLATELET COUNT 1134 K/MM3 (134-434)
[2017-10-14] MEDS ORDERED: PANTOPRAZOLE SODIUM 40 MG/100 ML BAG IVPB ONE (13:46)
[2017-10-14] MEDS ORDERED: PIPERACILLIN/TAZOB 3.375 GM 3.375 GM/50 ML BAG IVPB ONE (13:46)
[2017-10-14 13:50] LABS: ERYTHROCYTE SEDIMENTATION RATE 58 mm/hr (0-10)
[2017-10-14] MEDS: PANTOPRAZOLE 40 MG TABLET (FP) PO SCH (14:14)
[2017-10-14 14:42] LABS: ACANTHOCYTES 2+; ANISOCYTOSIS 3+; MACROCYTOSIS 1+; PLATELET ESTIMATE INCREASED; TARGET CELLS 3+
--- NOTE | 2017-10-14 16:31 | EKG ---
Test Reason : Blood Pressure : / mmHG Vent. Rate : 093 BPM Atrial Rate : 093 BPM P-R Int : 130 ms QRS Dur : 092 ms QT Int : 364 ms P-R-T Axes : 040 052 041 degrees QTc Int : 452 ms NORMAL SINUS RHYTHM NORMAL ECG WHEN COMPARED WITH ECG OF 12-OCT-2017 22:02, NO SIGNIFICANT CHANGE WAS FOUND Confirmed by JAMIE BUSTOS MD ([id number]) on 10/14/2017 4:31:14 PM Referred By: Confirmed By:JAMIE BUSTOS MD
--- NOTE | 2017-10-14 16:42 | CON.ID ---
Consult Consult Specialty:: infectious diseases Referred by:: Reason for Consultation:: abscess left deltoid region,drug abuse - History of Present Illness Chief Complaint: pain in the left deltoid region History of Present Illness: 32 year old male, with a significant past medical history of IV heroin abuse anemia, and ulcerative colitis, came to the emergency department with left shoulder/arm pain and increased erythema for approximately 3 days. according to the patient he uses drug very frequently and couple of days back he injected it into his deltoid region .He generally injects into his arm. Patient then noticed he developed pain and swelling of the deltoid and then developed the abscess for which he came to the hospital and surgery saw the patient and the plan is to take him to the operating room today. currently patient is c/o of pain in the deltoid region - History Source History Provided By: Patient Limitations to Obtaining History: No Limitations - Alcohol/Substance Use Hx Alcohol Use: Yes - Smoking History Smoking history: Current every day smoker Have you smoked in the past 12 months: Yes Aproximately how many cigarettes per day: 10 Home Medications - Allergies Allergies/Adverse Reactions: Allergies Allergy/AdvReac Type Severity Reaction Status Date / Time No Known Drug Allergies Allergy Verified 10/12/17 19:13 fish derived AdvReac Verified 10/12/17 19:13 cheese, fish AdvReac Uncoded 10/12/17 19:13 - Home Medications Home Medications: Ambulatory Orders Ferrous Sulfate 325 mg PO TID 10/12/17 Mesalamine [Lialda] 1.2 gm PO BID 10/12/17 Chlordiazepoxide [Librium -] 50 mg PO Q6HPO 10/14/17 Methadone [Dolophine -] 20 mg PO DAILY 10/14/17 Review of Systems - Review of Systems Constitutional: reports: No Symptoms Eyes: reports: No Symptoms HENT: reports: No Symptoms Neck: reports: No Symptoms Cardiovascular: reports: No Symptoms Respiratory: reports: No Symptoms Gastrointestinal: reports: No Symptoms Genitourinary: reports: No Symptoms Musculoskeletal: reports: Joint Pain, Joint Swelling Integumentary: reports: Change in Color, Erythema, Other Neurological: reports: No Symptoms Endocrine: reports: No Symptoms Hematology/Lymphatic: reports: No Symptoms Psychiatric: reports: No Symptoms Physical Exam Vital Signs: Vital Signs Temperature 99.3 F 10/14/17 11:18 Pulse Rate 123 H 10/14/17 11:18 Respiratory Rate 20 10/14/17 11:18 Blood Pressure 108/74 10/14/17 11:18 O2 Sat by Pulse Oximetry (%) 99 10/14/17 11:18 Constitutional: Yes: Calm, Mild Distress Eyes: Yes: Conjunctiva Clear HENT: Yes: Atraumatic, Normocephalic Neck: Yes: Supple, Trachea Midline Cardiovascular: Yes: Regular Rate and Rhythm Respiratory: Yes: Regular, CTA Bilaterally Gastrointestinal: Yes: Normal Bowel Sounds, Soft Musculoskeletal: Yes: WNL Extremities: Yes: Other (swelling of the left shoulder) Neurological: Yes: Alert, Oriented Psychiatric: Yes: Alert, Oriented Labs: CBC, BMP 10/14/17 12:28 10/14/17 12:28 Imaging - Results Ultrasound: Report Reviewed, Image Reviewed Assessment/Plan Problem List - Problems (1) Abscess of left shoulder Code(s): L02.414 - CUTANEOUS ABSCESS OF LEFT UPPER LIMB (2) Opioid dependence Code(s): F11.20 - OPIOID DEPENDENCE, UNCOMPLICATED (3) Alcohol dependence Code(s): F10.20 - ALCOHOL DEPENDENCE, UNCOMPLICATED (4) Cellulitis and abscess of hand Code(s): L03.119 - CELLULITIS OF UNSPECIFIED PART OF LIMB; L02.519 - CUTANEOUS ABSCESS OF UNSPECIFIED HAND (5) Cocaine abuse Code(s): F14.10 - COCAINE ABUSE, UNCOMPLICATED (6) IVDU (intravenous drug user) Code(s): F19.90 - OTHER PSYCHOACTIVE SUBSTANCE USE, UNSPECIFIED, UNCOMPLICATED (7) Ulcerative colitis Code(s): K51.90 - ULCERATIVE COLITIS, UNSPECIFIED, WITHOUT COMPLICATIONS Qualifiers: Ulcerative colitis location: unspecified ulcerative colitis location plan will start vanco and zosyn on the patient surgery today will ask for echo tomorrow drug rehab follow wbc post op await for cx report
[2017-10-14 16:53] VITALS: BMI 55.2
[2017-10-14] MEDS ORDERED: VANCOMYCIN 1,500 MG in DEXTROSE 5%-WATER - 250 ML IVPB SCH (17:00)
[2017-10-14] MEDS: PIPERACILLIN/TAZOB 3.375 GM 3.375 GM in DEXTROSE 5%-WATER - 50 ML IVPB SCH (17:45)
--- NOTE | 2017-10-14 18:08 | HP ---
Admitting History and Physical - Primary Care Physician PCP: Nicole Giron - Admission History of Present Illness: 32 year old male, with a significant past medical history of IV heroin abuse anemia, and ulcerative colitis, who presents to the emergency department with left shoulder/arm pain and increased erythema for approximately 3 days. The patient reports he first noted erythema around his left shoulder 3 days ago. Since then, patient reports associated swelling and pain to the point where he is unable to lift his left arm. He reports the erythema has spread down his left arm. He reports a subjective fever, but denies any chills, cough, headache , or dizziness. - Past Medical History Additional Past Medical History: ivda - Smoking History Smoking history: Current every day smoker Have you smoked in the past 12 months: Yes Aproximately how many cigarettes per day: 10 - Alcohol/Substance Use Hx Alcohol Use: Yes Home Medications - Allergies Allergies/Adverse Reactions: Allergies Allergy/AdvReac Type Severity Reaction Status Date / Time No Known Drug Allergies Allergy Verified 10/12/17 19:13 fish derived AdvReac Verified 10/12/17 19:13 cheese, fish AdvReac Uncoded 10/12/17 19:13 - Home Medications Home Medications: Ambulatory Orders Ferrous Sulfate 325 mg PO TID 10/12/17 Mesalamine [Lialda] 1.2 gm PO BID 10/12/17 Chlordiazepoxide [Librium -] 50 mg PO Q6HPO 10/14/17 Methadone [Dolophine -] 20 mg PO DAILY 10/14/17 Physical Examination Vital Signs: Vital Signs Temperature 98.6 F 10/14/17 16:50 Pulse Rate 105 H 10/14/17 16:50 Respiratory Rate 20 10/14/17 16:50 Blood Pressure 124/71 10/14/17 16:50 O2 Sat by Pulse Oximetry (%) 100 10/14/17 16:58 Constitutional: Yes: No Distress HENT: Yes: Atraumatic Neck: Yes: Supple Cardiovascular: Yes: Regular Rate and Rhythm Respiratory: Yes: CTA Bilaterally Gastrointestinal: Yes: Normal Bowel Sounds Extremities: Yes: Other (left arm cellulitis and abcess) Peripheral Pulses WNL: Yes Neurological: Yes: Alert, Oriented Labs: CBC, BMP 10/14/17 12:28 10/14/17 12:28 Problem List - Problems (1) Alcohol dependence Assessment/Plan: watch for withdrawl detox consult Code(s): F10.20 - ALCOHOL DEPENDENCE, UNCOMPLICATED (2) Cellulitis and abscess of hand Assessment/Plan: on iv abx will get surgery involved Code(s): L03.119 - CELLULITIS OF UNSPECIFIED PART OF LIMB; L02.519 - CUTANEOUS ABSCESS OF UNSPECIFIED HAND (3) IVDU (intravenous drug user) Code(s): F19.90 - OTHER PSYCHOACTIVE SUBSTANCE USE, UNSPECIFIED, UNCOMPLICATED (4) Anemia Assessment/Plan: monitor need blood transfusion Code(s): D64.9 - ANEMIA, UNSPECIFIED Qualifiers: Anemia type: iron deficiency Assessment/Plan Laboratory Tests 10/14/17 10/14/17 10/14/17 12:28 12:28 12:33 WBC 14.8 H RBC 3.91 L Hgb 7.9 L Hct 26.6 L MCV 68.0 L MCH 20.1 L MCHC 29.6 L RDW 22.4 H Plt Count 1134 H MPV 6.9 L Neutrophils % 48.7 Neutrophils % (Manual) 83.9 H Band Neutrophils % 0.0 Lymphocytes % 41.3 H Lymphocytes % (Manual) 5.4 L Monocytes % 7.9 Monocytes % (Manual) 8 Eosinophils % 1.4 Eosinophils % (Manual) 2.1 Basophils % 0.7 Basophils % (Manual) 1.1 Myelocytes % (Man) 0 Promyelocytes % (Man) 0 Blast Cells % (Manual) 0 Nucleated RBC % 0 Metamyelocytes 0 Hypochromia 3+ Platelet Estimate Increased Anisocytosis 3+ Microcytosis 2+ Macrocytosis 1+ Target Cells 3+ Acanthocytes (Spur) 2+ Schistocytes 1+ ESR 58 H Sodium 139 Potassium 5.2 H Chloride 105 Carbon Dioxide 28 Anion Gap 6 L BUN 5 L D Creatinine 0.8 Creat Clearance w eGFR > 60 Random Glucose 89 Calcium 8.4 L Total Bilirubin 0.3 D AST 13 L ALT 13 Alkaline Phosphatase 76 C-Reactive Protein 8.4 H Total Protein 7.3 Albumin 2.3 L Blood Type Cancelled Antibody Screen Cancelled 10/14/17 14:16 WBC RBC Hgb Hct MCV MCH MCHC RDW Plt Count MPV Neutrophils % Neutrophils % (Manual) Band Neutrophils % Lymphocytes % Lymphocytes % (Manual) Monocytes % Monocytes % (Manual) Eosinophils % Eosinophils % (Manual) Basophils % Basophils % (Manual) Myelocytes % (Man) Promyelocytes % (Man) Blast Cells % (Manual) Nucleated RBC % Metamyelocytes Hypochromia Platelet Estimate Anisocytosis Microcytosis Macrocytosis Target Cells Acanthocytes (Spur) Schistocytes ESR Sodium Potassium Chloride Carbon Dioxide Anion Gap BUN Creatinine Creat Clearance w eGFR Random Glucose Calcium Total Bilirubin AST ALT Alkaline Phosphatase C-Reactive Protein Total Protein Albumin Blood Type O POSITIVE Antibody Screen Negative Active Medications Generic Name Dose Route Start Last Admin Trade Name Faina PRN Reason Stop Dose Admin Acetaminophen 650 mg 10/14/17 12:42 Tylenol - PO Q4H PRN PAIN LEVEL 1-5 Sodium Chloride 1,000 mls @ 125 mls/hr 10/14/17 11:39 10/14/17 12:35 Normal Saline - IV 10/14/17 19:38 125 mls/hr ASDIR STA Administration Lactated Ringer's 1,000 mls @ 125 mls/hr 10/14/17 12:45 10/14/17 13:48 Lactated Ringers Solution IV 125 mls/hr ASDIR HOLDEN Administration Piperacillin Sod/Tazobactam 50 mls @ 100 mls/hr 10/14/17 18:00 10/14/17 17:45 Sod 3.375 gm/ Dextrose IVPB 100 mls/hr Q8H-IV HOLDEN Administration Protocol Vancomycin HCl 1,000 mg/ 250 mls @ 166.667 mls/hr 10/14/17 17:00 10/14/17 18: 03 Dextrose IVPB 10/14/17 18:29 166.667 mls/hr ONCE ONE Administration Vancomycin HCl 1,500 mg/ 250 mls @ 166.667 mls/hr 10/15/17 04:00 Dextrose IVPB Q24H HOLDEN Protocol Ketorolac Tromethamine 30 mg 10/14/17 12:42 Toradol Injection - IVPUSH 10/19/17 12:41 Q6H PRN PAIN LEVEL 7 - 10 Ondansetron HCl 4 mg 10/14/17 12:42 Zofran Injection IVPUSH Q6H PRN NAUSEA Pantoprazole Sodium 40 mg 10/14/17 12:45 10/14/17 14:14 Protonix - PO Not Given DAILY HOLDEN
[2017-10-14] MEDS ORDERED: MIDAZOLAM HCL 2 MG/2 ML SINGLE DOSE VIAL ONE ×3 (19:11)
[2017-10-14] MEDS ORDERED: PROPOFOL 20 ML ONE ×2 (19:20→19:26)
[2017-10-14] MEDS ORDERED: BUPIVACAINE HCL/PF 0.5% (5MG/ML) 10 ML VIAL ONE (19:20)
[2017-10-14] MEDS ORDERED: LIDOCAINE HCL 1%, 10 MG/ML (20ML VIAL) ONE (19:20)
[2017-10-14] MEDS ORDERED: BUPIVACAINE HCL/PF (5 MG/ML) 30 ML VIAL IJ ONE (19:34)
[2017-10-14] MEDS ORDERED: LIDOCAINE HCL 1%, 10 MG/ML (20ML VIAL) NR ONE (19:34)
--- NOTE | 2017-10-14 19:48 | CONSULT ---
Consult Consult Specialty:: hand and microsurgery Referred by:: michele Reason for Consultation:: left shoulder abscess - History of Present Illness Chief Complaint: left shoulder pain and swelling History of Present Illness: 32 year old male, with a significant past medical history of IV heroin abuse anemia, and ulcerative colitis, who presents to the emergency department with left shoulder/arm pain and increased erythema for approximately 3 days. The patient reports he first noted erythema around his left shoulder 3 days ago. Since then, patient reports associated swelling and pain to the point where he is unable to lift his left arm. He reports the erythema has spread down his left arm. He reports a subjective fever, but denies any chills, cough, headache , or dizziness. we were asked to evaluate. - History Source History Provided By: Patient, Medical Record Limitations to Obtaining History: No Limitations - Alcohol/Substance Use Hx Alcohol Use: Yes History of Substance Use: reports: Heroin, Marijuana - Smoking History Smoking history: Current every day smoker Have you smoked in the past 12 months: Yes Aproximately how many cigarettes per day: 10 Home Medications - Allergies Allergies/Adverse Reactions: Allergies Allergy/AdvReac Type Severity Reaction Status Date / Time No Known Drug Allergies Allergy Verified 10/12/17 19:13 fish derived AdvReac Verified 10/12/17 19:13 cheese, fish AdvReac Uncoded 10/12/17 19:13 - Home Medications Home Medications: Ambulatory Orders Ferrous Sulfate 325 mg PO TID 10/12/17 Mesalamine [Lialda] 1.2 gm PO BID 10/12/17 Chlordiazepoxide [Librium -] 50 mg PO Q6HPO 10/14/17 Methadone [Dolophine -] 20 mg PO DAILY 10/14/17 Review of Systems - Review of Systems Constitutional: denies: Chills, Fever Eyes: denies: Blind Spots, Recent Change in Vision HENT: denies: Difficult Swallowing Cardiovascular: denies: Chest Pain, Palpitations Respiratory: denies: Cough, SOB Gastrointestinal: denies: Abdominal Pain, Constipation, Diarrhea Genitourinary: denies: Burning, Discharge, Dysuria Breasts: reports: No Symptoms Reported. denies: Pain Integumentary: reports: Other (multiple tract pino both arms) Neurological: denies: Seizure, Syncope, Tremors Endocrine: denies: Unexplained Weight Gain, Unexplained Weight Loss Hematology/Lymphatic: denies: Easily Bruised, Excessive Bleeding Psychiatric: denies: Anxiety, Depression Physical Exam Vital Signs: Vital Signs Temperature 98.6 F 10/14/17 16:50 Pulse Rate 105 H 10/14/17 16:50 Respiratory Rate 20 10/14/17 16:50 Blood Pressure 124/71 10/14/17 16:50 O2 Sat by Pulse Oximetry (%) 100 10/14/17 16:58 Vital Signs Period Temp Pulse Resp BP Sys/Flores Pulse Ox Last 24 Hr 98.6 F-99.3 F 105-123 20-20 108-124/71-74 99-100 Constitutional: Yes: Well Nourished, No Distress, Calm, Poor Hygeine Eyes: Yes: Conjunctiva Clear, EOM Intact HENT: Yes: Atraumatic, Normocephalic Neck: Yes: Supple, Trachea Midline Cardiovascular: Yes: Regular Rate and Rhythm, S1, S2 Respiratory: Yes: Regular, CTA Bilaterally Gastrointestinal: Yes: Normal Bowel Sounds, Soft. No: Tenderness Renal/: No: CVA Tenderness - Left, CVA Tenderness - Right Musculoskeletal: Yes: Joint Swelling (left over deltoid) Extremities: No: Cool, Cyanosis Edema: Yes Edema: LUE: 2+ Peripheral Pulses WNL: Yes Integumentary: Yes: Erythema ([id number] of left shoulder over deltoid), Tattoos Neurological: Yes: Alert, Oriented Psychiatric: Yes: Alert, Oriented Labs: CBC, BMP 10/14/17 12:28 10/14/17 12:28 Imaging - Results Ultrasound: Report Reviewed, Image Reviewed (fluid cavity [id number]) Problem List - Problems (1) Abscess of left shoulder Assessment/Plan: 32 yo male PMH UC and IVDA NPO and IVF hydration IV antibiotics ID Consult f/u culture Discussed with patient risks, benefits and alternatives of incision and drainge of left shoulder, including but not limited to bleeding, infection, injury to adjacent structures, leak or injury, need for further procedures, loss of function, ; alternatives include antibiotics, delayed or no surgery - risks of this include failure of nonoperative therapy, sepsis, recurrence, . Patient desires to proceed with operation - will take to OR for above. Informed consent signed for same. Code(s): L02.414 - CUTANEOUS ABSCESS OF LEFT UPPER LIMB (2) Opioid dependence Code(s): F11.20 - OPIOID DEPENDENCE, UNCOMPLICATED (3) Alcohol dependence Code(s): F10.20 - ALCOHOL DEPENDENCE, UNCOMPLICATED (4) Cellulitis and abscess of hand Code(s): L03.119 - CELLULITIS OF UNSPECIFIED PART OF LIMB; L02.519 - CUTANEOUS ABSCESS OF UNSPECIFIED HAND (5) Cocaine abuse Code(s): F14.10 - COCAINE ABUSE, UNCOMPLICATED (6) IVDU (intravenous drug user) Code(s): F19.90 - OTHER PSYCHOACTIVE SUBSTANCE USE, UNSPECIFIED, UNCOMPLICATED (7) Ulcerative colitis Code(s): K51.90 - ULCERATIVE COLITIS, UNSPECIFIED, WITHOUT COMPLICATIONS Qualifiers: Ulcerative colitis location: unspecified ulcerative colitis location
[2017-10-14] MEDS ORDERED: ONDANSETRON 4 MG/2 ML VIAL ONE (20:12)
--- NOTE | 2017-10-14 20:12 | OP ---
Operative Note - Note: Operative Date: 10/14/17 Pre-Operative Diagnosis: left shoulder abscess Operation: incision and drainage of left shoulder abscess Findings: large subcutaneous abscess overlying deltoid at the site of abscess. 200ml foul smelling pus Post-Operative Diagnosis: Same as Pre-op Surgeon: Tom Reed Anesthesiologist/CLINICAL LABORATORY SERVICE TEACHER: Ashley Griffin Anesthesia: Local (0.5% marcaine 20ml), MAC Specimens Removed: culture Estimated Blood Loss (mls): 10 Drains & Tubes with Location: 2X 2"cling soaked in betadine Drains, Volume Out (mls): 250 (foul smelling pus ) Fluid Volume Replaced (mls): 400 Operative Report Dictated: Yes
--- NOTE | 2017-10-14 21:18 | CONSULT ---
Consult Detox [facility] Reason for Current Admission/Consult: substance use Referred by:: michele maurer - Alcohol/Substance Use Hx Alcohol Use: Yes Assessment Plan - Diagnosis (1) Alcohol dependence with withdrawal Status: Acute Qualifiers: Complication of substance-induced condition: uncomplicated Qualified Code(s ): F10.230 - Alcohol dependence with withdrawal, uncomplicated (2) Cellulitis and abscess of hand Status: Acute (3) Cocaine abuse Status: Acute (4) IVDU (intravenous drug user) Status: Acute (5) Marijuana dependence Status: Acute (6) Nicotine dependence Status: Acute Qualifiers: Nicotine product type: cigarettes Substance use status: in withdrawal Qualified Code(s): F17.213 - Nicotine dependence, cigarettes, with withdrawal (7) Opioid dependence with withdrawal Status: Acute (8) Anemia Status: Chronic Qualifiers: Anemia type: iron deficiency (9) Ulcerative colitis Status: Chronic Qualifiers: Ulcerative colitis location: unspecified ulcerative colitis location - Plan Plan: Chart, labs, imagin and mediation reviewed. 32 yo m transferred from [facility] where he was on day 2 of medically managed withdrawal from alcohol and opioids because of cellulits and abscess 2/2 idu, s/p i and. Will slow down detox because of medical copmlications and need for pain management while hospitlized. Recommend: 1. fluids, vitamins 2. methadone and libirum ordered. 3. return to [facility] when medically stable and cleared to complete detox or rehab. - Medication Detox Regimen/Protocol: Methadone/Librium
[2017-10-14] MEDS ORDERED: METHADONE HCL 10 MG TABLET (FOR DETOX USE ONLY) PO ONE (22:00)
[2017-10-14] MEDS ORDERED: METHADONE HCL 10 MG TABLET PO ONE (22:00)
[2017-10-14] MEDS ORDERED: PATIENT'S OWN MEDICATION (NON-FORMULARY) (Mesalamine [Lialda] 1.2 GM) PO SCH (22:00)
[2017-10-14] MEDS: THIAMINE HCL 100 MG TABLET (FP) PO SCH (22:08)
[2017-10-14] MEDS ORDERED: METHADONE HCL 5 MG TABLET PO ONE (23:00)
[2017-10-14] MEDS: chlordiazePOXIDE HCL 25 MG CAPSULE PO SCH (23:24)
[2017-10-15] MEDS: PIPERACILLIN/TAZOB 3.375 GM 3.375 GM in DEXTROSE 5%-WATER - 50 ML IVPB SCH ×3 (01:19→17:16)
[2017-10-15] MEDS: VANCOMYCIN 1,500 MG in DEXTROSE 5%-WATER - 500 ML IVPB SCH (03:20)
[2017-10-15] MEDS: chlordiazePOXIDE HCL 25 MG CAPSULE PO SCH ×4 (05:39→22:27)
[2017-10-15 06:35] LABS: HEMATOCRIT 22.7 % (35.4-49); MCHC 30.5 g/dl (32.0-35.9); MEAN CELL VOLUME 68.7 fl (80-96); RDW 22.1 % (11.9-15.9); WHITE BLOOD COUNT 10.7 K/mm3 (4.0-10.0)
[2017-10-15 07:01] LABS: ANION GAP 3 (8-16); BLOOD UREA NITROGEN 6 mg/dL (7-18); CALCIUM 8.1 mg/dL (8.5-10.1); CHLORIDE 108 mmol/L (98-107); CO2 30 mmol/L (21-32); CREATININE 0.8 mg/dL (0.7-1.3); GLUCOSE,RANDOM 94 mg/dL (74-106); POTASSIUM 4.9 mmol/L (3.5-5.1); SGOT/AST 9 U/L (15-37); SGPT/ALT 10 U/L (12-78); SODIUM 141 mmol/L (136-145)
[2017-10-15 07:03] LABS: ALK PHOS 61 U/L (45-117); BILIRUBIN,TOTAL 0.3 mg/dL (0.2-1.0); TOT PROT 6.3 g/dl (6.4-8.2)
[2017-10-15 07:21] LABS: HEMOGLOBIN 6.9 GM/dL (11.7-16.9)
[2017-10-15 07:22] LABS: PLATELET COUNT 970 K/MM3 (134-434)
--- NOTE | 2017-10-15 07:57 | PN ---
Progress Note, Physician Chief Complaint: left shoulder abscess History of Present Illness: 32 year old male, with a significant past medical history of IV heroin abuse anemia, and ulcerative colitis, who presents to the emergency department with left shoulder/arm pain and increased erythema for approximately 3 days. stable overnight. - Current Medication List Current Medications: Active Medications Acetaminophen (Tylenol -) 650 mg PO Q4H PRN PRN Reason: PAIN LEVEL 1-5 Chlordiazepoxide HCl (Librium -) 50 mg PO [id number] [facility] Stop: 10/15/17 17:01 Last Admin: 10/15/17 05:39 Dose: 50 mg Chlordiazepoxide HCl (Librium -) 25 mg PO [id number] [facility] Stop: 10/16/17 17:01 Chlordiazepoxide HCl (Librium -) 15 mg PO [id number] [facility] Stop: 10/17/17 17:01 Ferrous Sulfate (Feosol -) 325 mg PO TIDCM [facility] Piperacillin Sod/Tazobactam (Sod 3.375 gm/ Dextrose) 50 mls @ 100 mls/hr IVPB Q8H-IV [facility]; Protocol Last Admin: 10/15/17 01:19 Dose: 100 mls/hr Vancomycin HCl 1,500 mg/ (Dextrose) 500 mls @ 250 mls/hr IVPB Q24H [facility]; Protocol Last Admin: 10/15/17 03:20 Dose: 250 mls/hr Lactated Ringer's (Lactated Ringers Solution) 1,000 mls @ 75 mls/hr IV ASDIR [facility] Last Admin: 10/14/17 22:11 Dose: 75 mls/hr Ketorolac Tromethamine (Toradol Injection -) 30 mg IVPUSH Q6H PRN PRN Reason: PAIN LEVEL 7 - 10 Stop: 10/19/17 12:41 Methadone HCl (Dolophine -) 15 mg PO DAILY [facility] Stop: 10/17/17 10:01 Methadone HCl (Dolophine -) 5 mg PO DAILY@0600 [facility] Stop: 10/19/17 06:01 Methadone HCl (Dolophine -) 20 mg PO DAILY [facility] Stop: 10/15/17 10:01 Methadone HCl (Dolophine -) 10 mg PO DAILY [facility] Stop: 10/18/17 10:01 Non-Formulary Medication (Mesalamine [Lialda]) 1.2 gm PO BID [facility] Ondansetron HCl (Zofran Injection) 4 mg IVPUSH Q6H PRN PRN Reason: NAUSEA Pantoprazole Sodium (Protonix -) 40 mg PO DAILY [facility] Last Admin: 10/14/17 14:14 Dose: Not Given Multivit/Folic Acid/Iron ( Vitamins (Sjr) -) 1 tab PO DAILY [facility] Thiamine HCl (Vitamin B1 -) 100 mg PO HS [facility] Last Admin: 10/14/17 22:08 Dose: 100 mg - Objective Vital Signs: Vital Signs Temperature 97.8 F 10/15/17 05:00 Pulse Rate 61 10/15/17 05:00 Respiratory Rate 18 10/15/17 05:00 Blood Pressure 134/78 10/15/17 05:00 O2 Sat by Pulse Oximetry (%) 99 10/14/17 21:00 Constitutional: Yes: Well Nourished, No Distress, Calm Eyes: Yes: Conjunctiva Clear, EOM Intact HENT: Yes: Atraumatic, Normocephalic Neck: Yes: Supple, Trachea Midline Cardiovascular: Yes: Regular Rate and Rhythm, S1, S2 Respiratory: Yes: Regular, CTA Bilaterally Gastrointestinal: Yes: Normal Bowel Sounds, Soft. No: Tenderness ...Rectal Exam: Yes: Deferred Genitourinary: No: CVA Tenderness - Left, CVA Tenderness - Right Extremities: Yes: Erythema (left shoulder). No: Cool, Cyanosis Edema: No Peripheral Pulses WNL: Yes Peripheral Pulses: Left Radial: 2+, Right Radial: 2+, Left Doralis Pedis: 2+, Right Dorsalis Pedis: 2+ Wound/Incision: Yes: Clean/Dry, Draining, Reddened, Unapproximated (left shoudler, 2.5cm crucaite packed) Neurological: Yes: Alert, Oriented Psychiatric: Yes: Alert, Oriented Labs: CBC, BMP 10/15/17 06:10 10/15/17 06:10 Problem List - Problems (1) Abscess of left shoulder Assessment/Plan: 32 yo male PMH UC and IVDA POD#1 s/p incision and drainage of left shoulder abscess, erythema resolving, WBC now decreasing, ROM of left UE improving Daily Dressing: Left Shoulder Wound Measurement: 1.5cmX1.5cmX2.0cm left shoulder cruciate incision over deltoid Dressing Instructions: 2" iodoform packing, 4X4 gauze, kerlex wrap and tape Diet as tolerated IV antibiotics per Dr. Phillips f/u wound culture D/C planning with VNS Code(s): L02.414 - CUTANEOUS ABSCESS OF LEFT UPPER LIMB (2) Opioid dependence Code(s): F11.20 - OPIOID DEPENDENCE, UNCOMPLICATED (3) Alcohol dependence Code(s): F10.20 - ALCOHOL DEPENDENCE, UNCOMPLICATED (4) Cellulitis and abscess of hand Code(s): L03.119 - CELLULITIS OF UNSPECIFIED PART OF LIMB; L02.519 - CUTANEOUS ABSCESS OF UNSPECIFIED HAND (5) Cocaine abuse Code(s): F14.10 - COCAINE ABUSE, UNCOMPLICATED (6) IVDU (intravenous drug user) Code(s): F19.90 - OTHER PSYCHOACTIVE SUBSTANCE USE, UNSPECIFIED, UNCOMPLICATED (7) Ulcerative colitis Code(s): K51.90 - ULCERATIVE COLITIS, UNSPECIFIED, WITHOUT COMPLICATIONS Qualifiers: Ulcerative colitis location: unspecified ulcerative colitis location
--- NOTE | 2017-10-15 08:38 | OP ---
DATE OF OPERATION: 10/14/2017 PREOPERATIVE DIAGNOSIS: Left shoulder abscess. POSTOPERATIVE DIAGNOSIS: Left shoulder abscess. PROCEDURE: Incision and drainage, left shoulder abscess. ATTENDING SURGEON: Tom Reed MD INSURANCE RISK SURVEYOR: No one. ANESTHESIOLOGIST: Ashley Griffin MD ANESTHESIA: Local and MAC. Local consisted of 1% lidocaine, 0.5% Marcaine. A total of 20 mL given in an area block in a 1:1 solution. ESTIMATED BLOOD LOSS: 10 mL PURULENT DRAINAGE: Foul-smelling pus 250 mL. SPECIMEN SENT: A culture. PACKING: Two 2-inch Aaron wraps soaked in Betadine. BRIEF FINDINGS: A large subcutaneous abscess overlying the deltoid at the site of injection; 200 mL of foul-smelling pus was I&D'd and drained. Site was irrigated with 2 L of sterile irrigation. INDICATIONS: Patient is a 32-year-old male with a history of IV drug abuse, polysubstance abuse, who developed an abscess over the course of 2-4 days after injecting heroin. He was counseled regarding need for incision and drainage, signed informed consent, was taken for the procedure after being explained the risks, benefits, and alternatives of the surgical procedure as well as procedure. DESCRIPTION OF PROCEDURE: Patient was brought to the operating room and placed in supine position on the operating table with the right arm extended at 90 degrees perpendicular to the body's axis, the left shoulder tucked at the side, exposing the left anterior shoulder. Patient had SCDs to the lower extremities. He received intravenous antibiotics. He also was induced with sedation and provided with supplemental oxygen by Anesthesia, stable. We proceeded with formal timeout, identifying the operative site. After formal sterile prep and drape of the left shoulder, we began to block the field. Formal timeout was completed, and then, we proceeded with incision and drainage. A 15-blade scalpel was used to make a cruciate incision at the point of injection at the maximum position of fluctuance. A 2-cm cruciate incision was made. Immediately, there was a gush of pus. The pus was suctioned from the cavity. It appeared to be foul smelling, purulent, dense with particulate matter. No foreign body was identified. A total of 250 mL of pus was suctioned from the site. At which point, we began then to irrigate the cavity of 2 L of sterile irrigation fluid after exploration with both suction and a digit. After complete, there was a small amount of bloody effluent which was expressed from the site. Bovie cautery was used to cauterize the edges of the incision, and hemostasis was obtained. Two 2-inch Aaron soaked in Betadine were then installed into the previous abscess cavity to stent it open. This was left exposed, and a sterile dressing was then placed after the skin was cleaned, including 4 x 4 gauze and ABD pad as well as Kerlix wrap and Coban. Patient was awoken from sedation, having tolerated the procedure well. Counts were correct. Culture was sent from the initial pus that was suctioned. He returned to Recovery in stable condition. MD ROMAIN Galeas/[id number]
[2017-10-15] MEDS ORDERED: DEXTROSE 5%-WATER - 50 ML IVPB ONE ×2 (08:48→17:13)
[2017-10-15] MEDS ORDERED: PIPERACILLIN/TAZOBACTAM 3.375 GM VIAL IVPB ONE ×2 (08:48→17:12)
[2017-10-15] MEDS: PANTOPRAZOLE 40 MG TABLET (FP) PO SCH (09:52)
[2017-10-15] MEDS: FERROUS SO4 325 MG TABLET (FP) PO SCH ×3 (09:52→17:15)
[2017-10-15] MEDS ORDERED: METHADONE HCL 10 MG TABLET PO SCH (10:00)
[2017-10-15] MEDS ORDERED: HYDROmorphone HCL CARPU-JECT 1 MG/1 ML DISP.SYRIN IVPB ONE (10:48)
[2017-10-15] MEDS ORDERED: morphine SULFATE 4 MG/ML VIAL ONE (10:55)
[2017-10-15] MEDS: morphine CARPU-JECT 4 MG/1 ML DISP.SYRIN IVPUSH ONE ×2 (10:56→11:26)
[2017-10-15] MEDS: PRENATAL VITAMINS W/ FOLIC ACID TABLET (FP) PO SCH ×2 (10:56→12:28)
[2017-10-15] MEDS ORDERED: morphine SULFATE 4 MG/ML VIAL IVPUSH ONE (11:15)
[2017-10-15] MEDS ORDERED: PT OWN MED DRAWER 7, Y5N ONE ×2 (12:27→22:24)
[2017-10-15 12:38] LABS: ANISOCYTOSIS 3+; PLATELET ESTIMATE INCREASED; TARGET CELLS 2+
[2017-10-15] MEDS: KETOROLAC TROMETHAMINE 10 MG TABLET PO SCH ×3 (12:38→23:27)
--- NOTE | 2017-10-15 12:52 | PN ---
Progress Note, Physician History of Present Illness: feels much better no new issues says shoulder feels better - Current Medication List Current Medications: Active Medications Chlordiazepoxide HCl (Librium -) 50 mg PO [id number] [facility] Stop: 10/15/17 17:01 Last Admin: 10/15/17 10:57 Dose: 50 mg Chlordiazepoxide HCl (Librium -) 25 mg PO [id number] [facility] [place] Stop: 10/16/17 17:01 Chlordiazepoxide HCl (Librium -) 15 mg PO [id number] [facility] [place] Stop: 10/17/17 17:01 Ferrous Sulfate (Feosol -) 325 mg PO TIDCM [facility] [place] Last Admin: 10/15/17 12:38 Dose: 325 mg Piperacillin Sod/Tazobactam (Sod 3.375 gm/ Dextrose) 50 mls @ 100 mls/hr IVPB Q8H-IV [facility] [place]; Protocol Last Admin: 10/15/17 09:52 Dose: 100 mls/hr Vancomycin HCl 1,500 mg/ (Dextrose) 500 mls @ 250 mls/hr IVPB Q24H [facility] [place]; Protocol Last Admin: 10/15/17 03:20 Dose: 250 mls/hr Ketorolac Tromethamine (Toradol) 10 mg PO Q6HPO [facility] [place] Stop: 10/20/17 11:59 Last Admin: 10/15/17 12:38 Dose: Not Given Methadone HCl (Dolophine -) 15 mg PO DAILY [facility] [place] Stop: 10/17/17 10:01 Methadone HCl (Dolophine -) 5 mg PO DAILY@0600 [facility] [place] Stop: 10/19/17 06:01 Methadone HCl (Dolophine -) 10 mg PO DAILY [facility] [place] Stop: 10/18/17 10:01 Non-Formulary Medication (Mesalamine [Lialda]) 1.2 gm PO BID [facility] [place] Multivit/Folic Acid/Iron ( Vitamins (Sjr) -) 1 tab PO DAILY [facility] [place] Last Admin: 10/15/17 12:28 Dose: 1 tab Thiamine HCl (Vitamin B1 -) 100 mg PO HS [facility] [place] Last Admin: 10/14/17 22:08 Dose: 100 mg - Objective Vital Signs: Vital Signs Temperature 97.7 F 10/15/17 09:00 Pulse Rate 60 10/15/17 09:00 Respiratory Rate 20 10/15/17 09:00 Blood Pressure 131/67 10/15/17 09:00 O2 Sat by Pulse Oximetry (%) 99 10/15/17 09:00 Constitutional: Yes: No Distress, Calm Cardiovascular: Yes: Regular Rate and Rhythm Respiratory: Yes: Regular, CTA Bilaterally Gastrointestinal: Yes: Normal Bowel Sounds, Soft Musculoskeletal: Yes: WNL Extremities: Yes: Other Neurological: Yes: Alert, Oriented Psychiatric: Yes: Alert, Oriented Labs: CBC, BMP 10/15/17 06:10 10/15/17 06:10 - ....Imaging Ultrasound: Report Reviewed, Image Reviewed Assessment/Plan Problem List - Problems (1) Abscess of left shoulder Code(s): L02.414 - CUTANEOUS ABSCESS OF LEFT UPPER LIMB (2) Opioid dependence Code(s): F11.20 - OPIOID DEPENDENCE, UNCOMPLICATED (3) Alcohol dependence Code(s): F10.20 - ALCOHOL DEPENDENCE, UNCOMPLICATED (4) Cellulitis and abscess of hand Code(s): L03.119 - CELLULITIS OF UNSPECIFIED PART OF LIMB; L02.519 - CUTANEOUS ABSCESS OF UNSPECIFIED HAND (5) Cocaine abuse Code(s): F14.10 - COCAINE ABUSE, UNCOMPLICATED (6) IVDU (intravenous drug user) Code(s): F19.90 - OTHER PSYCHOACTIVE SUBSTANCE USE, UNSPECIFIED, UNCOMPLICATED (7) Ulcerative colitis Code(s): K51.90 - ULCERATIVE COLITIS, UNSPECIFIED, WITHOUT COMPLICATIONS Qualifiers: Ulcerative colitis location: unspecified ulcerative colitis location plan echo result noted continue current abx await for cx reports once we have the cx report then we will finalize the abx
--- NOTE | 2017-10-15 19:10 | PN ---
Progress Note, Physician History of Present Illness: feeling good - Current Medication List Current Medications: Active Medications Chlordiazepoxide HCl (Librium -) 25 mg PO H2V-HGM [facility] Stop: 10/16/17 17:01 Chlordiazepoxide HCl (Librium -) 15 mg PO [id number] [facility] Stop: 10/17/17 17:01 Ferrous Sulfate (Feosol -) 325 mg PO TIDCM [facility] Last Admin: 10/15/17 17:15 Dose: 325 mg Piperacillin Sod/Tazobactam (Sod 3.375 gm/ Dextrose) 50 mls @ 100 mls/hr IVPB Q8H-IV [facility]; Protocol Last Admin: 10/15/17 17:16 Dose: 100 mls/hr Vancomycin HCl 1,500 mg/ (Dextrose) 500 mls @ 250 mls/hr IVPB Q24H [facility]; Protocol Last Admin: 10/15/17 03:20 Dose: 250 mls/hr Ketorolac Tromethamine (Toradol) 10 mg PO Q6HPO [facility] Stop: 10/20/17 11:59 Last Admin: 10/15/17 17:15 Dose: 10 mg Methadone HCl (Dolophine -) 15 mg PO DAILY [facility] Stop: 10/17/17 10:01 Methadone HCl (Dolophine -) 5 mg PO DAILY@0600 [facility] Stop: 10/19/17 06:01 Methadone HCl (Dolophine -) 10 mg PO DAILY [facility] Stop: 10/18/17 10:01 Non-Formulary Medication (Mesalamine [Lialda]) 1.2 gm PO BID [facility] Multivit/Folic Acid/Iron ( Vitamins (Sjr) -) 1 tab PO DAILY [facility] Last Admin: 10/15/17 12:28 Dose: 1 tab Thiamine HCl (Vitamin B1 -) 100 mg PO HS [facility] Last Admin: 10/14/17 22:08 Dose: 100 mg - Objective Vital Signs: Vital Signs Temperature 98.3 F 10/15/17 14:00 Pulse Rate 93 H 10/15/17 14:00 Respiratory Rate 20 10/15/17 14:00 Blood Pressure 105/64 10/15/17 14:00 O2 Sat by Pulse Oximetry (%) 99 10/15/17 09:00 Constitutional: Yes: No Distress HENT: Yes: Atraumatic Neck: Yes: Supple Cardiovascular: Yes: Regular Rate and Rhythm Respiratory: Yes: CTA Bilaterally Gastrointestinal: Yes: Normal Bowel Sounds Extremities: Yes: Other (left arm in dressing) Neurological: Yes: Alert, Oriented Labs: CBC, BMP 10/15/17 06:10 10/15/17 06:10 Problem List - Problems (1) Alcohol dependence Assessment/Plan: watch for withdrawl Code(s): F10.20 - ALCOHOL DEPENDENCE, UNCOMPLICATED (2) Cellulitis and abscess of hand Assessment/Plan: on iv abx wound care Code(s): L03.119 - CELLULITIS OF UNSPECIFIED PART OF LIMB; L02.519 - CUTANEOUS ABSCESS OF UNSPECIFIED HAND (3) IVDU (intravenous drug user) Assessment/Plan: from [facility] Code(s): F19.90 - OTHER PSYCHOACTIVE SUBSTANCE USE, UNSPECIFIED, UNCOMPLICATED
[2017-10-15] MEDS: THIAMINE HCL 100 MG TABLET (FP) PO SCH (22:27)
[2017-10-15] MEDS ORDERED: diphenhydrAMINE HCL 25 MG CAPSULE (FP) PO PRN (23:31)
[2017-10-15] MEDS ORDERED: hydrOXYzine HCL 25 MG TABLET (FP) PO PRN ×2 (23:31→23:36)
[2017-10-15] MEDS: cloNIDine HCL 0.1 MG TABLET PO SCH (23:43)
[2017-10-15] MEDS: CYCLOBENZAPRINE HCL 10 MG TABLET (FP) PO SCH (23:43)
[2017-10-16] MEDS ORDERED: DEXTROSE 5%-WATER - 50 ML IVPB ONE ×3 (00:27→16:29)
[2017-10-16] MEDS ORDERED: PIPERACILLIN/TAZOBACTAM 3.375 GM VIAL IVPB ONE ×3 (00:27→16:29)
[2017-10-16] MEDS ORDERED: PT OWN MED DRAWER 7, Y5N ONE ×4 (00:27→17:36)
[2017-10-16] MEDS: ZOLPIDEM TARTRATE 5 MG TABLET PO PRN (01:11)
[2017-10-16] MEDS: PIPERACILLIN/TAZOB 3.375 GM 3.375 GM in DEXTROSE 5%-WATER - 50 ML IVPB SCH ×3 (01:22→17:11)
[2017-10-16] MEDS: VANCOMYCIN 1,500 MG in DEXTROSE 5%-WATER - 500 ML IVPB SCH (03:25)
[2017-10-16] MEDS: chlordiazePOXIDE HCL 25 MG CAPSULE PO SCH ×3 (05:47→17:10)
[2017-10-16] MEDS: KETOROLAC TROMETHAMINE 10 MG TABLET PO SCH ×3 (05:47→17:36)
[2017-10-16] MEDS: CYCLOBENZAPRINE HCL 10 MG TABLET (FP) PO SCH ×3 (05:47→21:38)
[2017-10-16] MEDS: cloNIDine HCL 0.1 MG TABLET PO SCH ×2 (10:09→21:38)
[2017-10-16] MEDS: METHADONE HCL 5 MG TABLET PO SCH (10:09)
[2017-10-16] MEDS: PRENATAL VITAMINS W/ FOLIC ACID TABLET (FP) PO SCH ×2 (10:10→17:10)
[2017-10-16] MEDS: FERROUS SO4 325 MG TABLET (FP) PO SCH ×4 (10:11→17:14)
--- NOTE | 2017-10-16 11:10 | PN ---
Progress Note, Physician Chief Complaint: left shoulder abscess History of Present Illness: 32 year old male, with a significant past medical history of IV heroin abuse anemia, and ulcerative colitis, who presents to the emergency department with left shoulder/arm pain and increased erythema for approximately 3 days. stable overnight. - Current Medication List Current Medications: Active Medications Chlordiazepoxide HCl (Librium -) 25 mg PO [id number] [facility] Stop: 10/16/17 17:01 Last Admin: 10/16/17 10:09 Dose: 25 mg Chlordiazepoxide HCl (Librium -) 15 mg PO [id number] [facility] Stop: 10/17/17 17:01 Clonidine (Catapres -) 0.1 mg PO BID [facility] Last Admin: 10/16/17 10:09 Dose: 0.1 mg Cyclobenzaprine HCl (Flexeril -) 10 mg PO TID [facility] Last Admin: 10/16/17 05:47 Dose: 10 mg Diphenhydramine HCl (Benadryl -) 50 mg PO HS [facility] Ferrous Sulfate (Feosol -) 325 mg PO TIDCM [facility] Last Admin: 10/16/17 10:11 Dose: Not Given Hydroxyzine HCl (Atarax -) 50 mg PO Q8H PRN PRN Reason: ANXIETY Piperacillin Sod/Tazobactam (Sod 3.375 gm/ Dextrose) 50 mls @ 100 mls/hr IVPB Q8H-IV [facility]; Protocol Last Admin: 10/16/17 10:10 Dose: 100 mls/hr Vancomycin HCl 1,500 mg/ (Dextrose) 500 mls @ 250 mls/hr IVPB Q24H [facility]; Protocol Last Admin: 10/16/17 03:25 Dose: 250 mls/hr Ketorolac Tromethamine (Toradol) 10 mg PO Q6HPO [facility] Stop: 10/20/17 11:59 Last Admin: 10/16/17 05:47 Dose: 10 mg Methadone HCl (Dolophine -) 15 mg PO DAILY [facility] Stop: 10/17/17 10:01 Last Admin: 10/16/17 10:09 Dose: 15 mg Methadone HCl (Dolophine -) 5 mg PO DAILY@0600 [facility] Stop: 10/19/17 06:01 Methadone HCl (Dolophine -) 10 mg PO DAILY [facility] Stop: 10/18/17 10:01 Non-Formulary Medication (Mesalamine [Lialda]) 1.2 gm PO BID [facility] Multivit/Folic Acid/Iron ( Vitamins (Sjr) -) 1 tab PO DAILY [facility] Last Admin: 10/16/17 10:10 Dose: Not Given Thiamine HCl (Vitamin B1 -) 100 mg PO HS [facility] Last Admin: 10/15/17 22:27 Dose: 100 mg Zolpidem Tartrate (Ambien -) 10 mg PO HS PRN PRN Reason: INSOMNIA Last Admin: 10/16/17 01:11 Dose: 10 mg - Objective Vital Signs: Vital Signs Temperature 97.7 F 10/16/17 10:55 Pulse Rate 62 10/16/17 10:55 Respiratory Rate 18 10/16/17 10:55 Blood Pressure 102/74 10/16/17 10:55 O2 Sat by Pulse Oximetry (%) 100 10/16/17 09:00 Constitutional: Yes: Well Nourished, No Distress, Calm Eyes: Yes: Conjunctiva Clear, EOM Intact HENT: Yes: Atraumatic, Normocephalic Neck: Yes: Supple, Trachea Midline Cardiovascular: Yes: Regular Rate and Rhythm, S1, S2 Respiratory: Yes: Regular, CTA Bilaterally Gastrointestinal: Yes: Normal Bowel Sounds, Soft ...Rectal Exam: Yes: Deferred Genitourinary: No: CVA Tenderness - Left, CVA Tenderness - Right Musculoskeletal: No: Muscle Pain, Muscle Weakness Extremities: No: Cool, Cyanosis Edema: Yes Edema: LUE: Trace Peripheral Pulses WNL: Yes Peripheral Pulses: Left Radial: 2+, Right Radial: 2+, Left Doralis Pedis: 2+, Right Dorsalis Pedis: 2+, Left Femoral: 2+, Right Femoral: 2+ Integumentary: Yes: Other (tract pino). No: Rash Wound/Incision: Yes: Unapproximated (left shoulder) Neurological: Yes: Alert, Oriented Psychiatric: Yes: Alert, Oriented Labs: CBC, BMP 10/15/17 06:10 10/15/17 06:10 Problem List - Problems (1) Abscess of left shoulder Assessment/Plan: 32 yo male PMH UC and IVDA POD#3 s/p incision and drainage of left shoulder abscess, erythema resolving, WBC now decreasing, ROM of left UE improving Daily Dressing: Left Shoulder Wound Measurement: 1.5cmX1.5cmX2.0cm left shoulder cruciate incision over deltoid Dressing Instructions: 2" iodoform packing, 4X4 gauze, kerlex wrap and tape Diet as tolerated IV antibiotics per Dr. Phillips f/u wound culture D/C planning with VNS Code(s): L02.414 - CUTANEOUS ABSCESS OF LEFT UPPER LIMB (2) Opioid dependence Code(s): F11.20 - OPIOID DEPENDENCE, UNCOMPLICATED (3) Alcohol dependence Code(s): F10.20 - ALCOHOL DEPENDENCE, UNCOMPLICATED (4) Cellulitis and abscess of hand Code(s): L03.119 - CELLULITIS OF UNSPECIFIED PART OF LIMB; L02.519 - CUTANEOUS ABSCESS OF UNSPECIFIED HAND (5) Cocaine abuse Code(s): F14.10 - COCAINE ABUSE, UNCOMPLICATED (6) IVDU (intravenous drug user) Code(s): F19.90 - OTHER PSYCHOACTIVE SUBSTANCE USE, UNSPECIFIED, UNCOMPLICATED (7) Ulcerative colitis Code(s): K51.90 - ULCERATIVE COLITIS, UNSPECIFIED, WITHOUT COMPLICATIONS Qualifiers: Ulcerative colitis location: unspecified ulcerative colitis location
--- NOTE | 2017-10-16 13:00 | PN ---
Progress Note, Physician - Current Medication List Current Medications: Active Medications Chlordiazepoxide HCl (Librium -) 25 mg PO [id number] [facility] Stop: 10/16/17 17:01 Last Admin: 10/16/17 10:09 Dose: 25 mg Chlordiazepoxide HCl (Librium -) 15 mg PO [id number] [facility] Stop: 10/17/17 17:01 Clonidine (Catapres -) 0.1 mg PO BID [facility] Last Admin: 10/16/17 10:09 Dose: 0.1 mg Cyclobenzaprine HCl (Flexeril -) 10 mg PO TID [facility] Last Admin: 10/16/17 05:47 Dose: 10 mg Diphenhydramine HCl (Benadryl -) 50 mg PO HS [facility] Ferrous Sulfate (Feosol -) 325 mg PO TIDCM [facility] Last Admin: 10/16/17 10:11 Dose: Not Given Hydroxyzine HCl (Atarax -) 50 mg PO Q8H PRN PRN Reason: ANXIETY Piperacillin Sod/Tazobactam (Sod 3.375 gm/ Dextrose) 50 mls @ 100 mls/hr IVPB Q8H-IV [facility]; Protocol Last Admin: 10/16/17 10:10 Dose: 100 mls/hr Vancomycin HCl 1,500 mg/ (Dextrose) 500 mls @ 250 mls/hr IVPB Q24H [facility]; Protocol Last Admin: 10/16/17 03:25 Dose: 250 mls/hr Ketorolac Tromethamine (Toradol) 10 mg PO Q6HPO [facility] Stop: 10/20/17 11:59 Last Admin: 10/16/17 05:47 Dose: 10 mg Methadone HCl (Dolophine -) 15 mg PO DAILY [facility] Stop: 10/17/17 10:01 Last Admin: 10/16/17 10:09 Dose: 15 mg Methadone HCl (Dolophine -) 5 mg PO DAILY@0600 [facility] Stop: 10/19/17 06:01 Methadone HCl (Dolophine -) 10 mg PO DAILY [facility] Stop: 10/18/17 10:01 Non-Formulary Medication (Mesalamine [Lialda]) 1.2 gm PO BID [facility] Multivit/Folic Acid/Iron ( Vitamins (Sjr) -) 1 tab PO DAILY [facility] Last Admin: 10/16/17 10:10 Dose: Not Given Thiamine HCl (Vitamin B1 -) 100 mg PO HS [facility] Last Admin: 10/15/17 22:27 Dose: 100 mg Zolpidem Tartrate (Ambien -) 10 mg PO HS PRN PRN Reason: INSOMNIA Last Admin: 10/16/17 01:11 Dose: 10 mg - Objective Vital Signs: Vital Signs Temperature 97.7 F 10/16/17 10:55 Pulse Rate 62 10/16/17 10:55 Respiratory Rate 18 10/16/17 10:55 Blood Pressure 102/74 10/16/17 10:55 O2 Sat by Pulse Oximetry (%) 100 10/16/17 09:00 Constitutional: Yes: No Distress HENT: Yes: Atraumatic Neck: Yes: Supple Cardiovascular: Yes: Regular Rate and Rhythm Respiratory: Yes: CTA Bilaterally Gastrointestinal: Yes: Normal Bowel Sounds Extremities: Yes: Other (left arm cellulitis) Neurological: Yes: Alert, Oriented Labs: CBC, BMP 10/15/17 06:10 10/15/17 06:10 Problem List - Problems (1) Alcohol dependence Assessment/Plan: watch for withdrawl on librium Code(s): F10.20 - ALCOHOL DEPENDENCE, UNCOMPLICATED (2) Cellulitis and abscess of hand Assessment/Plan: on iv abx wound care Code(s): L03.119 - CELLULITIS OF UNSPECIFIED PART OF LIMB; L02.519 - CUTANEOUS ABSCESS OF UNSPECIFIED HAND (3) IVDU (intravenous drug user) Assessment/Plan: from [facility] Code(s): F19.90 - OTHER PSYCHOACTIVE SUBSTANCE USE, UNSPECIFIED, UNCOMPLICATED (4) Anemia Assessment/Plan: ordered 2 u prbc Code(s): D64.9 - ANEMIA, UNSPECIFIED Qualifiers: Anemia type: iron deficiency
--- NOTE | 2017-10-16 13:36 | PN ---
Progress Note, Physician History of Present Illness: stable doing well no issues - Current Medication List Current Medications: Active Medications Chlordiazepoxide HCl (Librium -) 25 mg PO [id number] [facility] Stop: 10/16/17 17:01 Last Admin: 10/16/17 10:09 Dose: 25 mg Chlordiazepoxide HCl (Librium -) 15 mg PO [id number] [facility] Stop: 10/17/17 17:01 Clonidine (Catapres -) 0.1 mg PO BID [facility] Last Admin: 10/16/17 10:09 Dose: 0.1 mg Cyclobenzaprine HCl (Flexeril -) 10 mg PO TID [facility] Last Admin: 10/16/17 13:04 Dose: 10 mg Diphenhydramine HCl (Benadryl -) 50 mg PO HS [facility] Ferrous Sulfate (Feosol -) 325 mg PO TIDCM [facility] Last Admin: 10/16/17 13:04 Dose: 325 mg Hydroxyzine HCl (Atarax -) 50 mg PO Q8H PRN PRN Reason: ANXIETY Piperacillin Sod/Tazobactam (Sod 3.375 gm/ Dextrose) 50 mls @ 100 mls/hr IVPB Q8H-IV [facility]; Protocol Last Admin: 10/16/17 10:10 Dose: 100 mls/hr Ketorolac Tromethamine (Toradol) 10 mg PO Q6HPO [facility] Stop: 10/20/17 11:59 Last Admin: 10/16/17 13:05 Dose: 10 mg Methadone HCl (Dolophine -) 15 mg PO DAILY [facility] Stop: 10/17/17 10:01 Last Admin: 10/16/17 10:09 Dose: 15 mg Methadone HCl (Dolophine -) 5 mg PO DAILY@0600 [facility] Stop: 10/19/17 06:01 Methadone HCl (Dolophine -) 10 mg PO DAILY [facility] Stop: 10/18/17 10:01 Non-Formulary Medication (Mesalamine [Lialda]) 1.2 gm PO BID [facility] Multivit/Folic Acid/Iron ( Vitamins (Sjr) -) 1 tab PO DAILY [facility] Last Admin: 10/16/17 10:10 Dose: Not Given Thiamine HCl (Vitamin B1 -) 100 mg PO HS [facility] Last Admin: 10/15/17 22:27 Dose: 100 mg Zolpidem Tartrate (Ambien -) 10 mg PO HS PRN PRN Reason: INSOMNIA Last Admin: 10/16/17 01:11 Dose: 10 mg - Objective Vital Signs: Vital Signs Temperature 97.7 F 10/16/17 10:55 Pulse Rate 62 10/16/17 10:55 Respiratory Rate 18 10/16/17 10:55 Blood Pressure 102/74 10/16/17 10:55 O2 Sat by Pulse Oximetry (%) 100 10/16/17 09:00 Constitutional: Yes: No Distress, Calm Cardiovascular: Yes: Regular Rate and Rhythm Respiratory: Yes: Regular, CTA Bilaterally Gastrointestinal: Yes: Normal Bowel Sounds, Soft Musculoskeletal: Yes: Other Extremities: Yes: Other Wound/Incision: Yes: Dressing Dry and Intact Neurological: Yes: Alert, Oriented Psychiatric: Yes: Alert, Oriented Labs: CBC, BMP 10/15/17 06:10 10/15/17 06:10 Assessment/Plan Problem List - Problems (1) Abscess of left shoulder Code(s): L02.414 - CUTANEOUS ABSCESS OF LEFT UPPER LIMB (2) Opioid dependence Code(s): F11.20 - OPIOID DEPENDENCE, UNCOMPLICATED (3) Alcohol dependence Code(s): F10.20 - ALCOHOL DEPENDENCE, UNCOMPLICATED (4) Cellulitis and abscess of hand Code(s): L03.119 - CELLULITIS OF UNSPECIFIED PART OF LIMB; L02.519 - CUTANEOUS ABSCESS OF UNSPECIFIED HAND (5) Cocaine abuse Code(s): F14.10 - COCAINE ABUSE, UNCOMPLICATED (6) IVDU (intravenous drug user) Code(s): F19.90 - OTHER PSYCHOACTIVE SUBSTANCE USE, UNSPECIFIED, UNCOMPLICATED (7) Ulcerative colitis Code(s): K51.90 - ULCERATIVE COLITIS, UNSPECIFIED, WITHOUT COMPLICATIONS Qualifiers: Ulcerative colitis location: unspecified ulcerative colitis location patients h and h has dropped quite low plan will order a sat cbc transfusion if needed sensitivities pending can be switched to oral abx after cbc report comes in wbc trending down
[2017-10-16] MEDS: THIAMINE HCL 100 MG TABLET (FP) PO SCH (21:38)
[2017-10-16] MEDS: diphenhydrAMINE HCL 25 MG CAPSULE (FP) PO SCH (21:38)
[2017-10-16] MEDS: chlordiazePOXIDE 5 MG CAPSULE PO SCH (23:13)
--- NOTE | 2017-10-17 00:43 | DS ---
[facility] Detox Discharge Summary Admission Date: 10/14/17 Discharge Date: 10/14/17 - Physical Exam Results Vital Signs: Vital Signs Temperature 97.3 F L 10/16/17 20:24 Pulse Rate 96 H 10/16/17 20:24 Respiratory Rate 20 10/16/17 20:24 Blood Pressure 103/67 10/16/17 20:24 O2 Sat by Pulse Oximetry (%) 99 10/16/17 20:24 - Medication Discharge Medications: Ambulatory Orders Ferrous Sulfate 325 mg PO TID 10/12/17 Mesalamine [Lialda] 1.2 gm PO BID 10/12/17 Chlordiazepoxide [Librium -] 50 mg PO Q6HPO 10/14/17 Methadone [Dolophine -] 20 mg PO DAILY 10/14/17
[2017-10-17] MEDS ORDERED: DEXTROSE 5%-WATER - 50 ML IVPB ONE ×2 (01:27→11:04)
[2017-10-17] MEDS ORDERED: PIPERACILLIN/TAZOBACTAM 3.375 GM VIAL IVPB ONE ×2 (01:27→11:04)
[2017-10-17] MEDS ORDERED: PT OWN MED DRAWER 7, Y5N ONE ×2 (01:53→09:52)
[2017-10-17] MEDS: KETOROLAC TROMETHAMINE 10 MG TABLET PO SCH ×4 (02:04→18:26)
[2017-10-17] MEDS: PIPERACILLIN/TAZOB 3.375 GM 3.375 GM in DEXTROSE 5%-WATER - 50 ML IVPB SCH ×2 (02:04→10:30)
[2017-10-17] MEDS: chlordiazePOXIDE 5 MG CAPSULE PO SCH ×3 (06:54→18:26)
[2017-10-17] MEDS: CYCLOBENZAPRINE HCL 10 MG TABLET (FP) PO SCH ×3 (06:54→21:50)
[2017-10-17] MEDS: FERROUS SO4 325 MG TABLET (FP) PO SCH ×3 (08:34→17:46)
--- NOTE | 2017-10-17 09:29 | PN ---
Progress Note, Physician Chief Complaint: left shoulder abscess History of Present Illness: 32 year old male, with a significant past medical history of IV heroin abuse anemia, and ulcerative colitis, who presents to the emergency department with left shoulder/arm pain and increased erythema for approximately 3 day. Now pain is improved and motion is near normal. Last night the dressing was re applied too tight. he has no complaints. - Current Medication List Current Medications: Active Medications Chlordiazepoxide HCl (Librium -) 15 mg PO [id number] [facility] Stop: 10/17/17 17:01 Last Admin: 10/17/17 06:54 Dose: 15 mg Clonidine (Catapres -) 0.1 mg PO BID [facility] Last Admin: 10/16/17 21:38 Dose: Not Given Cyclobenzaprine HCl (Flexeril -) 10 mg PO TID [facility] Last Admin: 10/17/17 06:54 Dose: 10 mg Diphenhydramine HCl (Benadryl -) 50 mg PO HS [facility] Last Admin: 10/16/17 21:38 Dose: 50 mg Ferrous Sulfate (Feosol -) 325 mg PO TIDCM [facility] Last Admin: 10/17/17 08:34 Dose: 325 mg Hydroxyzine HCl (Atarax -) 50 mg PO Q8H PRN PRN Reason: ANXIETY Piperacillin Sod/Tazobactam (Sod 3.375 gm/ Dextrose) 50 mls @ 100 mls/hr IVPB Q8H-IV [facility]; Protocol Last Admin: 10/17/17 02:04 Dose: 100 mls/hr Ketorolac Tromethamine (Toradol) 10 mg PO Q6HPO [facility] Stop: 10/20/17 11:59 Last Admin: 10/17/17 06:54 Dose: 10 mg Methadone HCl (Dolophine -) 15 mg PO DAILY [facility] Stop: 10/17/17 10:01 Last Admin: 10/16/17 10:09 Dose: 15 mg Methadone HCl (Dolophine -) 5 mg PO DAILY@0600 [facility] Stop: 10/19/17 06:01 Methadone HCl (Dolophine -) 10 mg PO DAILY [facility] Stop: 10/18/17 10:01 Non-Formulary Medication (Mesalamine [Lialda]) 1.2 gm PO BID [facility] Multivit/Folic Acid/Iron ( Vitamins (Sjr) -) 1 tab PO DAILY [facility] Last Admin: 10/16/17 17:10 Dose: 1 tab Thiamine HCl (Vitamin B1 -) 100 mg PO HS [facility] Last Admin: 10/16/17 21:38 Dose: 100 mg Zolpidem Tartrate (Ambien -) 10 mg PO HS PRN PRN Reason: INSOMNIA Last Admin: 10/16/17 01:11 Dose: 10 mg - Objective Vital Signs: Vital Signs Temperature 97.8 F 10/17/17 08:40 Pulse Rate 71 10/17/17 08:40 Respiratory Rate 18 10/17/17 08:40 Blood Pressure 98/55 10/17/17 08:40 O2 Sat by Pulse Oximetry (%) 99 10/16/17 20:24 Vital Signs Period Temp Pulse Resp BP Sys/Flores Pulse Ox Last 24 Hr 97.3 F-97.8 F 62-101 16-20 84-108/55-74 99 Constitutional: Yes: Well Nourished, No Distress, Calm Eyes: Yes: Conjunctiva Clear, EOM Intact HENT: Yes: Atraumatic, Normocephalic Neck: Yes: Supple, Trachea Midline Cardiovascular: Yes: Regular Rate and Rhythm, S1, S2 Respiratory: Yes: Regular, CTA Bilaterally Gastrointestinal: Yes: Normal Bowel Sounds, Soft. No: Tenderness ...Rectal Exam: Yes: Deferred Genitourinary: No: CVA Tenderness - Left, CVA Tenderness - Right Extremities: No: Cool, Cyanosis Edema: RUE: 2+ Peripheral Pulses: Left Radial: 2+, Right Radial: 2+, Left Doralis Pedis: 2+, Right Dorsalis Pedis: 2+ Wound/Incision: Yes: Unapproximated Neurological: Yes: Alert, Oriented Psychiatric: Yes: Alert, Oriented Labs: CBC, BMP 10/15/17 06:10 10/15/17 06:10 Problem List - Problems (1) Abscess of left shoulder Assessment/Plan: 32 yo male PMH UC and IVDA POD#3 s/p incision and drainage of left shoulder abscess, erythema resolving, WBC now decreasing, ROM of left UE improving Right arm elevation will resolve swelling Daily Dressing: Left Shoulder Wound Measurement: 1.5cmX1.5cmX2.0cm left shoulder cruciate incision over deltoid Dressing Instructions: 2" iodoform packing, 4X4 gauze, kerlex wrap and tape Diet as tolerated IV antibiotics per Dr. Phillips f/u wound culture D/C planning Code(s): L02.414 - CUTANEOUS ABSCESS OF LEFT UPPER LIMB (2) Opioid dependence Code(s): F11.20 - OPIOID DEPENDENCE, UNCOMPLICATED (3) Alcohol dependence Code(s): F10.20 - ALCOHOL DEPENDENCE, UNCOMPLICATED (4) Cellulitis and abscess of hand Code(s): L03.119 - CELLULITIS OF UNSPECIFIED PART OF LIMB; L02.519 - CUTANEOUS ABSCESS OF UNSPECIFIED HAND (5) Cocaine abuse Code(s): F14.10 - COCAINE ABUSE, UNCOMPLICATED (6) IVDU (intravenous drug user) Code(s): F19.90 - OTHER PSYCHOACTIVE SUBSTANCE USE, UNSPECIFIED, UNCOMPLICATED (7) Ulcerative colitis Code(s): K51.90 - ULCERATIVE COLITIS, UNSPECIFIED, WITHOUT COMPLICATIONS Qualifiers: Ulcerative colitis location: unspecified ulcerative colitis location
[2017-10-17] MEDS: PRENATAL VITAMINS W/ FOLIC ACID TABLET (FP) PO SCH (10:01)
[2017-10-17] MEDS: cloNIDine HCL 0.1 MG TABLET PO SCH ×2 (10:01→21:50)
[2017-10-17] MEDS: METHADONE HCL 5 MG TABLET PO SCH (10:02)
[2017-10-17] MEDS ORDERED: ELECTROLYTE-148 SOLN 500 ML IV ONE (12:00)
--- NOTE | 2017-10-17 13:01 | PN ---
Progress Note, Physician History of Present Illness: stable doing well no issues - Current Medication List Current Medications: Active Medications Chlordiazepoxide HCl (Librium -) 15 mg PO [id number] [facility] Stop: 10/17/17 17:01 Last Admin: 10/17/17 11:08 Dose: 15 mg Clonidine (Catapres -) 0.1 mg PO BID [facility] Last Admin: 10/17/17 10:01 Dose: 0.1 mg Cyclobenzaprine HCl (Flexeril -) 10 mg PO TID [facility] Last Admin: 10/17/17 06:54 Dose: 10 mg Diphenhydramine HCl (Benadryl -) 50 mg PO HS [facility] Last Admin: 10/16/17 21:38 Dose: 50 mg Ferrous Sulfate (Feosol -) 325 mg PO TIDCM [facility] Last Admin: 10/17/17 11:08 Dose: 325 mg Hydroxyzine HCl (Atarax -) 50 mg PO Q8H PRN PRN Reason: ANXIETY Piperacillin Sod/Tazobactam (Sod 3.375 gm/ Dextrose) 50 mls @ 100 mls/hr IVPB Q8H-IV [facility]; Protocol Last Admin: 10/17/17 10:30 Dose: 100 mls/hr Parenteral Electrolytes (Plasma-Lyte 148 -) 1,000 mls @ 100 mls/hr IV ASDIR [facility] Ketorolac Tromethamine (Toradol) 10 mg PO Q6HPO [facility] Stop: 10/20/17 11:59 Last Admin: 10/17/17 12:25 Dose: 10 mg Methadone HCl (Dolophine -) 5 mg PO DAILY@0600 [facility] Stop: 10/19/17 06:01 Methadone HCl (Dolophine -) 10 mg PO DAILY [facility] Stop: 10/18/17 10:01 Non-Formulary Medication (Mesalamine [Lialda]) 1.2 gm PO BID [facility] Multivit/Folic Acid/Iron ( Vitamins (Sjr) -) 1 tab PO DAILY [facility] Last Admin: 10/17/17 10:01 Dose: 1 tab Thiamine HCl (Vitamin B1 -) 100 mg PO HS [facility] Last Admin: 10/16/17 21:38 Dose: 100 mg Zolpidem Tartrate (Ambien -) 10 mg PO HS PRN PRN Reason: INSOMNIA Last Admin: 10/16/17 01:11 Dose: 10 mg - Objective Vital Signs: Vital Signs Temperature 97.8 F 10/17/17 08:40 Pulse Rate 71 10/17/17 08:40 Respiratory Rate 18 10/17/17 09:00 Blood Pressure 98/55 10/17/17 08:40 O2 Sat by Pulse Oximetry (%) 99 10/17/17 09:00 Constitutional: Yes: No Distress, Calm Cardiovascular: Yes: Regular Rate and Rhythm Respiratory: Yes: Regular, CTA Bilaterally Gastrointestinal: Yes: Normal Bowel Sounds, Soft Musculoskeletal: Yes: WNL Extremities: Yes: Other Wound/Incision: Yes: Dressing Dry and Intact Neurological: Yes: Alert, Oriented Labs: CBC, BMP 10/15/17 06:10 10/15/17 06:10 Assessment/Plan Problem List - Problems (1) Abscess of left shoulder Code(s): L02.414 - CUTANEOUS ABSCESS OF LEFT UPPER LIMB (2) Opioid dependence Code(s): F11.20 - OPIOID DEPENDENCE, UNCOMPLICATED (3) Alcohol dependence Code(s): F10.20 - ALCOHOL DEPENDENCE, UNCOMPLICATED (4) Cellulitis and abscess of hand Code(s): L03.119 - CELLULITIS OF UNSPECIFIED PART OF LIMB; L02.519 - CUTANEOUS ABSCESS OF UNSPECIFIED HAND (5) Cocaine abuse Code(s): F14.10 - COCAINE ABUSE, UNCOMPLICATED (6) IVDU (intravenous drug user) Code(s): F19.90 - OTHER PSYCHOACTIVE SUBSTANCE USE, UNSPECIFIED, UNCOMPLICATED (7) Ulcerative colitis Code(s): K51.90 - ULCERATIVE COLITIS, UNSPECIFIED, WITHOUT COMPLICATIONS Qualifiers: Ulcerative colitis location: unspecified ulcerative colitis location patients h and h has dropped quite low plan continue orl abx doing well some pain on the site rest as per surgery wound care
[2017-10-17 13:21] LABS: BASO % 1.2 % (0-2.0); EOS % 4.9 % (0-4.5); HEMATOCRIT 25.3 % (35.4-49); HEMOGLOBIN 7.4 GM/dL (11.7-16.9); MCH 20.2 pg (25.7-33.7); MCHC 29.4 g/dl (32.0-35.9); MEAN CELL VOLUME 68.8 fl (80-96); MONO % 3.5 % (3.8-10.2); NEUT % 26.4 % (42.8-82.8); RBC 3.67 M/mm3 (4.00-5.60); RDW 21.6 % (11.9-15.9); WHITE BLOOD COUNT 6.5 K/mm3 (4.0-10.0)
[2017-10-17 13:23] LABS: PLATELET COUNT 1136 K/MM3 (134-434)
[2017-10-17] MEDS: ELECTROLYTE-148 SOLN 1,000 ML IV SCH (13:45)
[2017-10-17 14:02] LABS: ANISOCYTOSIS 2+; PLATELET ESTIMATE INCREASED; TARGET CELLS 2+
[2017-10-17] MEDS: AMOX TR/POT CLAV 875MG/125MG TABLETS (FP) PO SCH (17:46)
--- NOTE | 2017-10-17 18:46 | DS ---
Physical Examination Vital Signs: Vital Signs Temperature 98.2 F 10/17/17 14:00 Pulse Rate 95 H 10/17/17 14:00 Respiratory Rate 18 10/17/17 09:00 Blood Pressure 100/56 10/17/17 14:00 O2 Sat by Pulse Oximetry (%) 99 10/17/17 09:00 Constitutional: Yes: No Distress HENT: Yes: Atraumatic Neck: Yes: Supple Cardiovascular: Yes: Regular Rate and Rhythm Respiratory: Yes: CTA Bilaterally Gastrointestinal: Yes: Normal Bowel Sounds Extremities: Yes: Other (left arm in dressing) Neurological: Yes: Alert, Oriented Labs: CBC, BMP 10/17/17 12:57 10/15/17 06:10 Discharge Summary Reason For Visit: CELLULITIS AND ABSCESS OF HAND Condition: Improved - Instructions Diet, Activity, Other Instructions: Postoperative instructions: You had a incision and drainage of left shoulder abscess on 10/14/[address] Tom Reed of [facility]. Activity: Resume your usual activities gradually, but no heavy exertion or lifting more than 10-15 pounds for 4-6 weeks. Eat lightly at first, but advance to your usual diet as tolerated. Pain: For pain, you may use and alternate Tylenol (acetaminophen) and/or ibuprofen every 6 hours each as needed; this means that you can take one OR the other at 3-hour intervals. If you are prescribed a Tylenol/narcotic combination for severe pain, use it instead of plain Tylenol as needed and switch back when your pain starts decreasing. Do not take more than 4000mg of acetaminophen in a day. Take medications as prescribed or indicated on the labeling. Follow-up: Call Dr. Reed' office at [phone] to make your postop appointment (Thursday 1-2 weeks after surgery as advised). Clinic is held in the [facility] on the first floor of [facility]. Call the office if you have: * increasing pain not responsive to pain medication * fever of 101F or higher * unusual or increasing bleeding or drainage from wounds * increasing redness or swelling at wound sites Also, see your primary medical doctor within 1-2 weeks. Disposition: HOME - Home Medications Comprehensive Discharge Medication List: Ambulatory Orders Ferrous Sulfate 325 mg PO TID 10/12/17 Mesalamine [Lialda] 1.2 gm PO BID 10/12/17 Chlordiazepoxide [Librium -] 50 mg PO Q6HPO 10/14/17 Methadone [Dolophine -] 20 mg PO DAILY 10/14/17 Amox-Tr/K Cl [Augmentin 875-125mg Tablet -] 1 tab PO BID@0800,1730 #14 tablet Vitamins (Sjr) - 1 tab PO DAILY #30 tablet 10/17/17 Thiamine HCl [Vitamin B1 -] 100 mg PO HS #30 tablet 10/17/17 dc home wound care fu pmd next week continued to refuse blood transfusion
[2017-10-17] MEDS: diphenhydrAMINE HCL 25 MG CAPSULE (FP) PO SCH (21:50)
[2017-10-17] MEDS: THIAMINE HCL 100 MG TABLET (FP) PO SCH (21:50)
[2017-10-17] MEDS: ZOLPIDEM TARTRATE 5 MG TABLET PO PRN (23:34)
[2017-10-18] MEDS: KETOROLAC TROMETHAMINE 10 MG TABLET PO SCH ×3 (00:08→12:45)
[2017-10-18 05:22] VITALS: PULSE 80; TEMP 97.4
[2017-10-18] MEDS: CYCLOBENZAPRINE HCL 10 MG TABLET (FP) PO SCH ×2 (05:59→14:29)
[2017-10-18] MEDS: FERROUS SO4 325 MG TABLET (FP) PO SCH ×2 (07:49→11:16)
[2017-10-18] MEDS: AMOX TR/POT CLAV 875MG/125MG TABLETS (FP) PO SCH (07:49)
[2017-10-18 08:25] VITALS: BP 102/69
[2017-10-18] MEDS: cloNIDine HCL 0.1 MG TABLET PO SCH (10:00)
[2017-10-18] MEDS: PRENATAL VITAMINS W/ FOLIC ACID TABLET (FP) PO SCH (10:00)
[2017-10-18] MEDS ORDERED: METHADONE HCL 10 MG TABLET PO SCH (10:00)
--- NOTE | 2017-10-18 11:40 | PN ---
Progress Note, Physician Chief Complaint: left shoulder abscess History of Present Illness: 32 year old male, with a significant past medical history of IV heroin abuse anemia, and ulcerative colitis, who presents to the emergency department with left shoulder/arm pain and increased erythema for approximately 3 day. Now pain is improved and motion is near normal. he has no complaints awaiting discharge. - Current Medication List Current Medications: Active Medications Amoxicillin/Clavulanate Potassium (Augmentin - 875mg Tablet) 1 tab PO BID@0800, 1730 [facility] Last Admin: 10/18/17 07:49 Dose: 1 tab Clonidine (Catapres -) 0.1 mg PO BID [facility] Last Admin: 10/18/17 10:00 Dose: 0.1 mg Cyclobenzaprine HCl (Flexeril -) 10 mg PO TID [facility] Last Admin: 10/18/17 05:59 Dose: 10 mg Diphenhydramine HCl (Benadryl -) 50 mg PO HS [facility] Last Admin: 10/17/17 21:50 Dose: 50 mg Ferrous Sulfate (Feosol -) 325 mg PO TIDCM [facility] Last Admin: 10/18/17 11:16 Dose: 325 mg Hydroxyzine HCl (Atarax -) 50 mg PO Q8H PRN PRN Reason: ANXIETY Last Admin: 10/18/17 10:00 Dose: 50 mg Parenteral Electrolytes (Plasma-Lyte 148 -) 1,000 mls @ 100 mls/hr IV ASDIR [facility] Last Admin: 10/17/17 13:45 Dose: 100 mls/hr Ketorolac Tromethamine (Toradol) 10 mg PO Q6HPO [facility] Stop: 10/20/17 11:59 Last Admin: 10/18/17 05:59 Dose: 10 mg Methadone HCl (Dolophine -) 5 mg PO DAILY@0600 [facility] Stop: 10/19/17 06:01 Non-Formulary Medication (Mesalamine [Lialda]) 1.2 gm PO BID [facility] Multivit/Folic Acid/Iron ( Vitamins (Sjr) -) 1 tab PO DAILY [facility] Last Admin: 10/18/17 10:00 Dose: 1 tab Thiamine HCl (Vitamin B1 -) 100 mg PO HS [facility] Last Admin: 10/17/17 21:50 Dose: 100 mg Zolpidem Tartrate (Ambien -) 10 mg PO HS PRN PRN Reason: INSOMNIA Last Admin: 10/17/17 23:34 Dose: 10 mg - Objective Vital Signs: Vital Signs Temperature 97.4 F L 10/18/17 08:20 Pulse Rate 80 10/18/17 08:20 Respiratory Rate 18 10/18/17 08:27 Blood Pressure 102/69 10/18/17 08:20 O2 Sat by Pulse Oximetry (%) 100 10/18/17 08:27 Vital Signs Period Temp Pulse Resp BP Sys/Flores Pulse Ox Last 24 Hr 97.3 F-98.2 F 62-95 18-18 98-106/51-71 100-100 Constitutional: Yes: Well Nourished, No Distress, Calm Eyes: Yes: Conjunctiva Clear, EOM Intact HENT: Yes: Atraumatic, Normocephalic Neck: Yes: Supple, Trachea Midline Cardiovascular: Yes: Regular Rate and Rhythm, S1, S2 Respiratory: Yes: Regular, CTA Bilaterally. No: Cough Gastrointestinal: Yes: Normal Bowel Sounds, Soft. No: Tenderness ...Rectal Exam: Yes: Deferred Genitourinary: No: CVA Tenderness - Left, CVA Tenderness - Right Musculoskeletal: No: Muscle Pain, Muscle Weakness Extremities: Yes: Cool, Cyanosis Edema: Yes Edema: RUE: 2+ Peripheral Pulses: Left Radial: 2+, Right Radial: 2+ Wound/Incision: Yes: Clean/Dry, Unapproximated. No: Draining, Reddened, Bleeding Neurological: Yes: Alert, Oriented Psychiatric: Yes: Alert, Oriented Labs: CBC, BMP 10/17/17 12:57 10/15/17 06:10 Problem List - Problems (1) Abscess of left shoulder Assessment/Plan: 32 yo male PMH UC and IVDA POD#3 s/p incision and drainage of left shoulder abscess, erythema resolving, WBC now decreasing, ROM of left UE improving Right arm elevation will resolve swelling Daily Dressing: Left Shoulder Wound Measurement: 1.5cmX1.5cmX2.0cm left shoulder cruciate incision over deltoid Dressing Instructions: 2" iodoform packing, 4X4 gauze, kerlex wrap and tape Diet as tolerated IV antibiotics per Dr. Phillips f/u wound culture D/C planning Code(s): L02.414 - CUTANEOUS ABSCESS OF LEFT UPPER LIMB (2) Opioid dependence Code(s): F11.20 - OPIOID DEPENDENCE, UNCOMPLICATED (3) Alcohol dependence Code(s): F10.20 - ALCOHOL DEPENDENCE, UNCOMPLICATED (4) Cellulitis and abscess of hand Code(s): L03.119 - CELLULITIS OF UNSPECIFIED PART OF LIMB; L02.519 - CUTANEOUS ABSCESS OF UNSPECIFIED HAND (5) Cocaine abuse Code(s): F14.10 - COCAINE ABUSE, UNCOMPLICATED (6) IVDU (intravenous drug user) Code(s): F19.90 - OTHER PSYCHOACTIVE SUBSTANCE USE, UNSPECIFIED, UNCOMPLICATED (7) Ulcerative colitis Code(s): K51.90 - ULCERATIVE COLITIS, UNSPECIFIED, WITHOUT COMPLICATIONS Qualifiers: Ulcerative colitis location: unspecified ulcerative colitis location
--- NOTE | 2017-10-18 11:58 | PN ---
Progress Note, Physician History of Present Illness: stable doing well no issues dressing intact - Current Medication List Current Medications: Active Medications Amoxicillin/Clavulanate Potassium (Augmentin - 875mg Tablet) 1 tab PO BID@0800, 1730 [facility] Last Admin: 10/18/17 07:49 Dose: 1 tab Clonidine (Catapres -) 0.1 mg PO BID [facility] Last Admin: 10/18/17 10:00 Dose: 0.1 mg Cyclobenzaprine HCl (Flexeril -) 10 mg PO TID [facility] Last Admin: 10/18/17 05:59 Dose: 10 mg Diphenhydramine HCl (Benadryl -) 50 mg PO HS [facility] Last Admin: 10/17/17 21:50 Dose: 50 mg Ferrous Sulfate (Feosol -) 325 mg PO TIDCM [facility] Last Admin: 10/18/17 11:16 Dose: 325 mg Hydroxyzine HCl (Atarax -) 50 mg PO Q8H PRN PRN Reason: ANXIETY Last Admin: 10/18/17 10:00 Dose: 50 mg Parenteral Electrolytes (Plasma-Lyte 148 -) 1,000 mls @ 100 mls/hr IV ASDIR [facility] Last Admin: 10/17/17 13:45 Dose: 100 mls/hr Ketorolac Tromethamine (Toradol) 10 mg PO Q6HPO [facility] Stop: 10/20/17 11:59 Last Admin: 10/18/17 05:59 Dose: 10 mg Methadone HCl (Dolophine -) 5 mg PO DAILY@0600 [facility] Stop: 10/19/17 06:01 Non-Formulary Medication (Mesalamine [Lialda]) 1.2 gm PO BID [facility] Multivit/Folic Acid/Iron ( Vitamins (Sjr) -) 1 tab PO DAILY [facility] Last Admin: 10/18/17 10:00 Dose: 1 tab Thiamine HCl (Vitamin B1 -) 100 mg PO HS [facility] Last Admin: 10/17/17 21:50 Dose: 100 mg Zolpidem Tartrate (Ambien -) 10 mg PO HS PRN PRN Reason: INSOMNIA Last Admin: 10/17/17 23:34 Dose: 10 mg - Objective Vital Signs: Vital Signs Temperature 97.4 F L 10/18/17 08:20 Pulse Rate 80 10/18/17 08:20 Respiratory Rate 18 10/18/17 08:27 Blood Pressure 102/69 10/18/17 08:20 O2 Sat by Pulse Oximetry (%) 100 10/18/17 08:27 Constitutional: Yes: No Distress, Calm Cardiovascular: Yes: Regular Rate and Rhythm Respiratory: Yes: Regular, CTA Bilaterally Gastrointestinal: Yes: Normal Bowel Sounds, Soft Extremities: Yes: Other Wound/Incision: Yes: Dressing Dry and Intact Neurological: Yes: Alert, Oriented Psychiatric: Yes: Alert, Oriented Labs: CBC, BMP 10/17/17 12:57 10/15/17 06:10 Assessment/Plan Problem List - Problems (1) Abscess of left shoulder Code(s): L02.414 - CUTANEOUS ABSCESS OF LEFT UPPER LIMB (2) Opioid dependence Code(s): F11.20 - OPIOID DEPENDENCE, UNCOMPLICATED (3) Alcohol dependence Code(s): F10.20 - ALCOHOL DEPENDENCE, UNCOMPLICATED (4) Cellulitis and abscess of hand Code(s): L03.119 - CELLULITIS OF UNSPECIFIED PART OF LIMB; L02.519 - CUTANEOUS ABSCESS OF UNSPECIFIED HAND (5) Cocaine abuse Code(s): F14.10 - COCAINE ABUSE, UNCOMPLICATED (6) IVDU (intravenous drug user) Code(s): F19.90 - OTHER PSYCHOACTIVE SUBSTANCE USE, UNSPECIFIED, UNCOMPLICATED (7) Ulcerative colitis Code(s): K51.90 - ULCERATIVE COLITIS, UNSPECIFIED, WITHOUT COMPLICATIONS Qualifiers: Ulcerative colitis location: unspecified ulcerative colitis location patients h and h has dropped quite low plan continue oral abx as planned doing well some pain on the site rest as per surgery wound care
[2017-10-18] MEDS: ELECTROLYTE-148 SOLN 1,000 ML IV SCH (12:46)
--- NOTE | 2017-10-18 18:48 | DS ---
Physical Examination Vital Signs: Vital Signs Temperature 97.4 F L 10/18/17 08:20 Pulse Rate 80 10/18/17 08:20 Respiratory Rate 18 10/18/17 08:27 Blood Pressure 102/69 10/18/17 08:20 O2 Sat by Pulse Oximetry (%) 100 10/18/17 08:27 Labs: CBC, BMP 10/17/17 12:57 10/15/17 06:10 Discharge Summary Reason For Visit: CELLULITIS AND ABSCESS OF HAND Condition: Improved - Instructions Diet, Activity, Other Instructions: Postoperative instructions: You had a incision and drainage of left shoulder abscess on 10/14/[address] Tom Reed of [facility]. Activity: Resume your usual activities gradually, but no heavy exertion or lifting more than 10-15 pounds for 4-6 weeks. Eat lightly at first, but advance to your usual diet as tolerated. Pain: For pain, you may use and alternate Tylenol (acetaminophen) and/or ibuprofen every 6 hours each as needed; this means that you can take one OR the other at 3-hour intervals. If you are prescribed a Tylenol/narcotic combination for severe pain, use it instead of plain Tylenol as needed and switch back when your pain starts decreasing. Do not take more than 4000mg of acetaminophen in a day. Take medications as prescribed or indicated on the labeling. Follow-up: Call Dr. Reed' office at [phone] to make your postop appointment (Thursday 1-2 weeks after surgery as advised). Clinic is held in the [facility] on the first floor of [facility]. Call the office if you have: * increasing pain not responsive to pain medication * fever of 101F or higher * unusual or increasing bleeding or drainage from wounds * increasing redness or swelling at wound sites Also, see your primary medical doctor within 1-2 weeks. Disposition: HOME - Home Medications Comprehensive Discharge Medication List: Ambulatory Orders Ferrous Sulfate 325 mg PO TID 10/12/17 Mesalamine [Lialda] 1.2 gm PO BID 10/12/17 Chlordiazepoxide [Librium -] 50 mg PO Q6HPO 10/14/17 Methadone [Dolophine -] 20 mg PO DAILY 10/14/17 Amox-Tr/K Cl [Augmentin 875-125mg Tablet -] 1 tab PO BID@0800,1730 #14 tablet Vitamins (Sjr) - 1 tab PO DAILY #30 tablet 10/17/17 Thiamine HCl [Vitamin B1 -] 100 mg PO HS #30 tablet 10/17/17
[2017-10-19] MEDS ORDERED: METHADONE HCL 5 MG TABLET PO SCH (06:00)
== END 2017-10-18 14:43 | disposition home or self-care (01) | DRG 383 ==
LOC: JER 11:16 → JERBED 13:41 → J4W 21:00
PROVIDERS: ADMIT Internal Medicine; ATTEND Internal Medicine
PROC: 0H9CXZX Drainage of Left Upper Arm Skin, External Approach, Diagnostic (ICD-10-PCS; principal; 2017-10-14 17:00)
DX: L02.414 Cutaneous abscess of left upper limb (principal); L03.114 Cellulitis of left upper limb; F11.20 Opioid dependence, uncomplicated; F10.20 Alcohol dependence, uncomplicated; F14.10 Cocaine abuse, uncomplicated; D50.9 Iron deficiency anemia, unspecified; F17.210 Nicotine dependence, cigarettes, uncomplicated; K51.90 Ulcerative colitis, unspecified, without complications
CPT/HCPCS: 36415; 76882; 80053; 85025; 85651; 86140; 86850; 86900; 86901; 86922; 87040; 87070; 87077; 87205; 93005; 93010; 93306-TC; 93971; 94760; 97116-GP; 97161-GP; 99285-25; J0735; J7030